=== PATIENT | male | born 1950 | race Caucasian/White ===

== ENCOUNTER 2016-05-15 11:09 | Observation (INO) | payer MEDICARE, OTHER ==
[~2016-05-15] VITALS: Ht 177.8 cm; Wt 100.1 kg
[2016-05-15] VITALS (8 sets, daily range): BP systolic 120–183; BP diastolic 60–91; PULSE 103–121; RESP 18–22; TEMP 89–98.1; O2SAT 93–97
[~2016-05-15 11:09] MED LIST: ALLO100T PO; ASPI81TA82 PO; CARV6.25 PO; CLOP75 PO; DIOV40TA PO; FURO1TAB93 PO; LEVA750T9 PO; LIPI10TA PO; PANT20 PO; POTA10IN2 PO; PRED10PA PO; Z.0.OXYGENDME NC
--- NOTE | 2016-05-15 11:29 | PD ---
HPI Chief Complaint: Chest Pain Time Seen by Provider: 11:24 Travel History International Travel<30 days: No Contact w/Intl Traveler<30days: No Traveled to known affect area: No History of Present Illness HPI 66-year-old male with PMH of lymphoma, gout, pulmonary fibrosis, HTN, GERD, CAD S/P stenting ~15 years ago ON PLAVIX presents to the ED for evaluation of 09/27, constant, centralized chest pain, radiating to the shoulders. Patient states this pain woke him from sleep this morning. He denies palpitations, diaphoresis , nausea or vomiting. Patient also complains of shortness of breath, no alleviating or exacerbating factors reported. States that he was feeling well last night. He denies recent history of headaches, dizziness, fevers, chills, chest pain, palpitations, abdominal pain, nausea, vomiting, dysuria, back pain. Patient states he was able to take his normal proximate tomorrow walk on the beach this morning. He states that he was feeling short of breath upon return, use rescue inhaler and his nighttime oxygen. He states that he uses 2 L of oxygen at night secondary to his pulmonary fibrosis. He endorses drinking "3 or 4 beers" daily. He is followed by Dr. Woodard, primary care, Dr. Jamie Bustillo, oncology, Dr. Nava, cardiology. PFS Past Medical History Arthritis: No Asthma: No Autoimmune Disease: No Heart Rhythm Problems: No Cancer: Yes (lymphoma) Cardiac Catheterization: Yes Cardiovascular Problems: Yes (cardiac stents) High Cholesterol: Yes Chemotherapy: No Chest Pain: No Congestive Heart Failure: No COPD: No Cerebrovascular Accident: No Coronary Artery Disease: Yes Diabetes: No Diminished Hearing: No Endocrine: No Gastrointestinal Disorders: Yes GERD: Yes Gout: Yes Genitourinary: No Headaches: No Hiatal Hernia: No Heparin Induced Thrombocytopen: No Hypertension: Yes Immune Disorder: No Implanted Vascular Access Dvce: No Kidney Stones: No Musculoskeletal: No Neurologic: No Psychiatric: No Reproductive: No Respiratory: Yes Migraines: No Radiation Therapy: No Renal Failure: No Seizures: No Sickle Cell Disease: No Sleep Apnea: No Thyroid Disease: No Ulcer: No Tetanus Vaccination: Unknown Influenza Vaccination: No Past Surgical History Abdominal Surgery: No AICD: No Arteriovenous Shunt: No Cardiac Surgery: Yes (stents) Ear Surgery: No Endocrine Surgery: No Eye Surgery: Yes (cataract) Genitourinary Surgery: No Gynecologic Surgery: No Insulin Pump: No Joint Replacement: No Neurologic Surgery: No Oral Surgery: No Pacemaker: No Thoracic Surgery: No Tonsillectomy: Yes Other Surgery: Yes (tonsillectomy, stent placement) Social History Alcohol Use: Yes (3-4 beers daily) Tobacco Use: No Substance Use: No Allergies-Medications (Allergen,Severity, Reaction): Coded Allergies: No Known Allergies (Unverified , 05/15/16) Reported Meds & Prescriptions Reported Meds & Active Scripts Active Reported Plavix (Clopidogrel Bisulfate) 75 Mg Tab 75 Mg PO DAILY Atorvastatin (Atorvastatin Calcium) 20 Mg Tab 20 Mg PO HS Aspirin 81 (Aspirin) 81 Mg Tabdr 81 Mg PO DAILY Allopurinol 300 Mg Tab 300 Mg PO DAILY Pantoprazole (Pantoprazole Sodium) 40 Mg Tab 40 Mg PO 2XWEEK Fish Oil 1200 mg ([place]-3 Fatty Acids) 1 Cap Cap 2,400 Mg PO DAILY Review of Systems Except as stated in HPI: all other systems reviewed are Neg Physical Exam Narrative GENERAL: Well-nourished, well-developed obese white male in no acute distress. SKIN: Warm and dry. HEAD: Normocephalic. EYES: No scleral icterus. No injection or drainage. NECK: Supple, trachea midline. No JVD or lymphadenopathy. CARDIOVASCULAR: Regular rate and rhythm without murmurs, gallops, or rubs. 2+ DP and radial pulses bilaterally. RESPIRATORY: Breath sounds clear and equal bilaterally. No accessory muscle use. GASTROINTESTINAL: Abdomen soft, nondistended, tender to palpation in the right upper quadrant and epigastric areas. Some voluntary guarding. No palpable masses. MUSCULOSKELETAL: No cyanosis, or edema. The patient is observed to walk with a normal gate. BACK: Nontender without obvious deformity. No CVA tenderness. Data Data Last Documented VS Vital Signs Date Time Temp Pulse Resp B/P Pulse Ox O2 Delivery O2 Flow Rate FiO2 05/15/16 16:09 109 20 142/72 95 Nasal Cannula 2 05/15/16 11:59 97.7 Orders Electrocardiogram (05/15/16 11:19) Ckmb (Isoenzyme) Profile (05/15/16 11:19) Complete Blood Count With Diff (05/15/16 11:19) Comprehensive Metabolic Panel (05/15/16 11:19) Magnesium (Mg) (05/15/16 11:19) Prothrombin Time / Inr (Pt) (05/15/16 11:19) Act Partial Throm Time (Ptt) (05/15/16 11:19) Troponin I (05/15/16 11:19) Lipase (05/15/16 11:19) Chest, Single Ap (05/15/16 11:19) Ecg Monitoring (05/15/16 11:19) Bilateral Bp Monitoring (05/15/16 11:19) Iv Access Insert/Monitor (05/15/16 11:19) Oximetry (05/15/16 11:19) Sodium Chloride 0.9% Flush (Ns Flush) (05/15/16 11:30) Urinalysis - C+S If Indicated (05/15/16 11:19) Morphine Inj (Morphine Inj) (05/15/16 11:30) Ondansetron Inj (Zofran Inj) (05/15/16 11:30) Oxygen Administration (05/15/16 11:19) Ct Pulmonary Angiogram (05/15/16 ) Iohexol 350 Inj (Omnipaque 350 Inj) (05/15/16 13:27) Alcohol Withdrawal Asmt-Ciwa Q4HX18 (05/15/16 15:36) Flumazenil Inj (Romazicon Inj) (05/15/16 15:45) Lorazepam (Ativan) (05/15/16 15:45) Lorazepam Inj (Ativan Inj) (05/15/16 15:45) Lorazepam (Ativan) (05/15/16 15:45) Lorazepam Inj (Ativan Inj) (05/15/16 15:45) Lorazepam Inj (Ativan Inj) (05/15/16 15:45) Lorazepam Inj (Ativan Inj) (05/15/16 15:45) Admit Order (Ed Use Only) (05/15/16 16:25) Labs Laboratory Tests Test 05/15/16 05/15/16 11:20 13:35 White Blood Count 13.7 TH/MM3 Red Blood Count 4.46 MIL/MM3 Hemoglobin 14.9 GM/DL Hematocrit 41.5 % Mean Corpuscular Volume 93.0 FL Mean Corpuscular Hemoglobin 33.4 PG Mean Corpuscular Hemoglobin 35.9 % Concent Red Cell Distribution Width 13.4 % Platelet Count 400 TH/MM3 Mean Platelet Volume 7.3 FL Neutrophils (%) (Auto) 78.9 % Lymphocytes (%) (Auto) 9.8 % Monocytes (%) (Auto) 9.7 % Eosinophils (%) (Auto) 0.9 % Basophils (%) (Auto) 0.7 % Neutrophils # (Auto) 10.8 TH/MM3 Lymphocytes # (Auto) 1.3 TH/MM3 Monocytes # (Auto) 1.3 TH/MM3 Eosinophils # (Auto) 0.1 TH/MM3 Basophils # (Auto) 0.1 TH/MM3 CBC Comment DIFF FINAL Differential Comment Prothrombin Time 12.3 SEC Prothromb Time International 1.1 RATIO Ratio Activated Partial 29.5 SEC Thromboplast Time Sodium Level 136 MEQ/L Potassium Level 3.6 MEQ/L Chloride Level 99 MEQ/L Carbon Dioxide Level 30.3 MEQ/L Anion Gap 7 MEQ/L Blood Urea Nitrogen 9 MG/DL Creatinine 0.96 MG/DL Estimat Glomerular Filtration 78 ML/MIN Rate Random Glucose 95 MG/DL Calcium Level 8.7 MG/DL Magnesium Level 1.5 MG/DL Total Bilirubin 1.4 MG/DL Aspartate Amino Transf 20 U/L (AST/SGOT) Alanine Aminotransferase 20 U/L (ALT/SGPT) Alkaline Phosphatase 105 U/L Total Creatine Kinase 40 U/L Troponin I LESS THAN 0.02 NG/ML Total Protein 9.3 GM/DL Albumin 3.2 GM/DL Lipase 103 U/L Urine Color YELLOW Urine Turbidity CLEAR Urine pH 6.5 Urine Specific [place] 1.040 Urine Protein TRACE mg/dL Urine Glucose (UA) NEG mg/dL Urine Ketones NEG mg/dL Urine Occult Blood NEG Urine Nitrite NEG Urine Bilirubin NEG Urine Urobilinogen 2.0 MG/DL Urine Leukocyte Esterase NEG Urine Mucus FEW /lpf Microscopic Urinalysis Comment CULT NOT INDICATED MDM Medical Decision Making Medical Screen Exam Complete: Yes Emergency Medical Condition: Yes Interpretation(s) EKG rate 121, sinus rhythm. ND interval 159, QRS 98, QTc 387. Normal axis. No ST changes. Reviewed by Dr. Manzanares. Differential Diagnosis Angina versus GERD versus cholecystitis versus pancreatitis versus PE versus pneumonia versus ACS versus electrolyte abnormality versus anemia versus other Narrative Course 66-year-old male with PMH of lymphoma, gout, pulmonary fibrosis, HTN, GERD, CAD S/P stenting ~15 years ago ON PLAVIX presents to the ED for evaluation of 09/27, constant, centralized chest pain, radiating to the shoulders. Onset around 7 AM , the patient's from sleep. Accompanied by shortness of breath. No alleviating or exacerbating factors reported. He denies palpitations, diaphoresis, nausea or vomiting. He denies recent history of headaches, dizziness, fevers, chills, chest pain, palpitations, abdominal pain, nausea, vomiting, dysuria, back pain. Patient states he was able to take his normal ~2 mile walk on the beach this morning. This exacerbated her shortness of breath so he uses rescue inhaler and O2. He states that he uses 2 L of oxygen at night secondary to his pulmonary fibrosis. He endorses drinking "3 or 4 beers" daily. He is followed by Dr. Woodard, primary care, Dr. Jamie Bustillo, oncology, Dr. Nava, cardiology. Vitals reviewed. Patient is tachycardic, hypertensive, respiratory rate 22, 93% O2 saturation on presentation. Physical exam reveals an obese white male in no acute distress. No appreciable M/R/GP. Clear, equal breath sounds in all lung armstrong. Abdomen tender in the epigastric and right upper quadrant areas. Active bowel sounds. Equal pulses in bilateral extremities. No lower extremity edema. IV was established. Patient was placed on continuous monitoring and administered 2 L oxygen via nasal cannula. He was administered 4 mg morphine. EKG: As above. CBC: WBC 13.7, 78.9% neutrophils. Chem 14.9. INR 1.1. CMP: Bilirubin 1.4. Lipase 103. Cardiac enzymes negative. Chest x-ray: No acute cardiopulmonary disease per radiology read. CTA of the chest: 1. No evidence of pulmonary loss. 2. Moderate severity bilateral interstitial opacities, unchanged. 3. 1 cm right lung nodule, unchanged. 4. Mildly enlarged hilar and mediastinal lymph nodes, unchanged. Recheck of the patient reveals improvement of his pain symptoms. Tachycardia, rate 110 and 120 persists. Patient was removed from oxygen and O2 sats were noted to dip into the low 90s at rest. Dr. Manzanares and I discussed the results of the workup with the patient. We recommended the patient be admitted for 23 hour observation, serial cardiac enzymes and EKGs. The patient is agreeable with this plan. Patient was placed on [facility] protocol. Call placed to the patient's PCP, Dr. Woodard. Spoke with Dr. Woodard who states that [facility] is admitting his patients today. Took with Dr. Lio Pastrana. He agrees to accept the patient for 23 hour observation. Please see medicine notes for disposition. Diagnosis Primary Impression: Chest pain Qualified Code: R07.9 - Chest pain, unspecified type Additional Impressions: Tachycardia Hypoxia Briseyda Orr May 15, 2016 11:29
[2016-05-15] MEDS ORDERED: ONDANSETRON HCL 4 MG/2 ML VIAL IVP ONE (11:30)
[2016-05-15] MEDS ORDERED: MORPHINE SULFATE 4 MG/ML INJ IV PUSH ONE (11:30)
[2016-05-15] MEDS ORDERED: SODIUM CHLORIDE 0.9% FLUSH 5 ML FLUSH IVF PRN (11:30)
[2016-05-15 11:42] LABS: AUTOMATED NEUTROPHIL # 10.8 TH/MM3 (1.8-7.7); BASOPHIL # 0.1 TH/MM3 (0-0.2); BASOPHIL % 0.7 % (0.0-2.0); EOSINOPHIL # 0.1 TH/MM3 (0-0.4); EOSINOPHIL % 0.9 % (0.0-4.0); HEMATOCRIT 41.5 % (39.0-51.0); HEMO FLAGS DIFF FINAL; LYMPH % 9.8 % (9.0-44.0); LYMPHOCYTE # 1.3 TH/MM3 (1.0-4.8); MEAN CORPUSCULAR HEMOGLOBIN 33.4 PG (27.0-34.0); MEAN CORPUSCULAR HGB CONC 35.9 % (32.0-36.0); MONO % 9.7 % (0.0-8.0); NEUT % 78.9 % (16.0-70.0); PLATELET COUNT 400 TH/MM3 (150-450); RED BLOOD COUNT 4.46 MIL/MM3 (4.50-5.90); RED CELL DISTRIBUTION WIDTH 13.4 % (11.6-17.2); WHITE BLOOD COUNT 13.7 TH/MM3 (4.0-11.0)
[2016-05-15] MEDS ORDERED: FISH1200 PO (11:51)
[2016-05-15] MEDS ORDERED: PANT40TA3 PO (11:51)
[2016-05-15 11:52] LABS: APTT (PATIENT) 29.5 SEC (24.3-30.1); INTERNATIONAL NORMALIZED RATIO 1.1 RATIO; PROTHROMBIN TIME - PATIENT 12.3 SEC (9.8-11.6)
[2016-05-15] MEDS ORDERED: ALLO300T2 PO (11:52)
[2016-05-15] MEDS ORDERED: ATOR20TA15 PO (11:52)
[2016-05-15] MEDS ORDERED: ASPI-110 PO (11:52)
[2016-05-15] MEDS ORDERED: PLAV75TA29 PO (11:52)
[2016-05-15 11:58] LABS: ANION GAP 7 MEQ/L (5-15); AST (GOT) 20 U/L (15-37); BICARBONATE 30.3 MEQ/L (21.0-32.0); BLOOD UREA NITROGEN 9 MG/DL (7-18); CHLORIDE 99 MEQ/L (98-107); GLOMERULAR FILTRATION RATE 78 ML/MIN (>89); MAGNESIUM 1.5 MG/DL (1.5-2.5); POTASSIUM 3.6 MEQ/L (3.5-5.1); SODIUM (NA) 136 MEQ/L (136-145)
[2016-05-15 12:03] LABS: ALKALINE PHOSPHATASE 105 U/L (45-117); ALT (GPT) 20 U/L (12-78); TOTAL BILIRUBIN ADULT 1.4 MG/DL (0.2-1.0)
--- NOTE | 2016-05-15 12:50 | RADRPT ---
EXAM DATE/TIME: 05/15/2016 11:26 [facility] COMPARISON: CHEST SINGLE AP, August 02, 2015, 11:49. INDICATIONS : Pain and shortness of breath. MEDICAL HISTORY : Pneumonia/sepsis in November. SURGICAL HISTORY : Stent placement. ENCOUNTER: Initial ACUITY: 1 day PAIN SCORE: 5/10 LOCATION: Bilateral chest FINDINGS: Single AP view of the chest. The lungs are clear. Cardiomediastinal silhouette within normal limits. No evidence of pleural effusion or pneumothorax. CONCLUSION: No acute cardiopulmonary disease identified. Kang Cox MD on May 15, 2016 at 12:48 Board Certified Radiologist. This report was verified electronically.
[2016-05-15 12:56] LABS: CREATINE KINASE 40 U/L (39-308)
[2016-05-15] MEDS ORDERED: IOHEXOL 350 MG/ML 10 ML VIAL (for RAD DIAG) IV ONE (13:27)
[2016-05-15 14:00] LABS: BLOOD, URINE NEG (NEG); COMMENT (UR) CULT NOT INDICATED; CULTURE IF INDICATED CULT NOT INDICATED; GLUCOSE,URINE NEG (NEG); KETONE, URINE NEG (NEG); MUCUS URINE FEW /lpf (OCC); NITRITE,URINE NEG (NEG); PH, URINE 6.5 (5.0-8.5); URINE COLOR YELLOW (YELLW/STRAW)
--- NOTE | 2016-05-15 14:42 | RADRPT ---
EXAM DATE/TIME: 05/15/2016 13:23 [facility] COMPARISON: CT THORAX W/O CONTRAST, July 30, 2015, 13:51. CHEST SINGLE AP, May 15, 2016, 11:26. INDICATIONS : Short of breath. IV CONTRAST: 60 cc Omnipaque 350 (iohexol) IV RADIATION DOSE: 23.15 CTDIvol (mGy) MEDICAL HISTORY : Cardiovascular disease. Gastroesophageal reflux disease. Lymphoma. SURGICAL HISTORY : None. ENCOUNTER: Initial ACUITY: 1 day PAIN SCALE: 3/10 LOCATION: chest TECHNIQUE: Volumetric scanning of the chest was performed using a pulmonary embolism protocol MIP images were re constructed. Using automated exposure control and adjustment of the mA and/or kV according to patien t size, radiation dose was kept as low as reasonably achievable to obtain optimal diagnostic quality images. FINDINGS: PULMONARY ARTERIES: No filling defects are seen in the pulmonary arteries through the segmental level. LUNGS: Moderate severity bilateral reticular, predominantly peripheral opacity is again seen in the lungs. T hese findings are very similar to the prior CT chest of 07/30/2015. Right midlung nodule on image #59 measures 1.1 x 0.8 cm, unchanged from prior study PLEURAE: There is no pleural thickening or pleural effusion. MEDIASTINUM: Small prominent hilar lymph nodes bilaterally with the largest seen on the right measuring 2.4 x 1.7 cm, grossly unchanged from prior CT. Multiple mildly prominent mediastinal lymph nodes also unchanged . Coronary artery calcifications. Small pericardial effusion. Thoracic aorta is normal diameter. MUSCULOSKELETAL: Within normal limits for patient age. MISCELLANEOUS: The visualized upper abdominal organs demonstrate no acute abnormality. CONCLUSION: 1. No evidence of pulmonary loss. 2. Moderate severity bilateral interstitial opacity unchanged indicating chronic lung disease. 3. 1 cm right lung nodule unchanged. 4. Mildly enlarged hilar lymph nodes and mediastinal lymph nodes unchanged. Kang Cox MD on May 15, 2016 at 14:33 Board Certified Radiologist. This report was verified electronically.
--- NOTE | 2016-05-15 15:34 | PD ---
Data Data Last Documented VS Vital Signs Date Time Temp Pulse Resp B/P Pulse Ox O2 Delivery O2 Flow Rate FiO2 05/15/16 14:36 112 22 158/74 96 2 05/15/16 13:09 Nasal Cannula 05/15/16 11:59 97.7 Orders Electrocardiogram (05/15/16 11:19) Ckmb (Isoenzyme) Profile (05/15/16 11:19) Complete Blood Count With Diff (05/15/16 11:19) Comprehensive Metabolic Panel (05/15/16 11:19) Magnesium (Mg) (05/15/16 11:19) Prothrombin Time / Inr (Pt) (05/15/16 11:19) Act Partial Throm Time (Ptt) (05/15/16 11:19) Troponin I (05/15/16 11:19) Lipase (05/15/16 11:19) Chest, Single Ap (05/15/16 11:19) Ecg Monitoring (05/15/16 11:19) Bilateral Bp Monitoring (05/15/16 11:19) Iv Access Insert/Monitor (05/15/16 11:19) Oximetry (05/15/16 11:19) Sodium Chloride 0.9% Flush (Ns Flush) (05/15/16 11:30) Urinalysis - C+S If Indicated (05/15/16 11:19) Morphine Inj (Morphine Inj) (05/15/16 11:30) Ondansetron Inj (Zofran Inj) (05/15/16 11:30) Oxygen Administration (05/15/16 11:19) Ct Pulmonary Angiogram (05/15/16 ) Iohexol 350 Inj (Omnipaque 350 Inj) (05/15/16 13:27) Labs Laboratory Tests Test 05/15/16 05/15/16 11:20 13:35 White Blood Count 13.7 TH/MM3 Red Blood Count 4.46 MIL/MM3 Hemoglobin 14.9 GM/DL Hematocrit 41.5 % Mean Corpuscular Volume 93.0 FL Mean Corpuscular Hemoglobin 33.4 PG Mean Corpuscular Hemoglobin 35.9 % Concent Red Cell Distribution Width 13.4 % Platelet Count 400 TH/MM3 Mean Platelet Volume 7.3 FL Neutrophils (%) (Auto) 78.9 % Lymphocytes (%) (Auto) 9.8 % Monocytes (%) (Auto) 9.7 % Eosinophils (%) (Auto) 0.9 % Basophils (%) (Auto) 0.7 % Neutrophils # (Auto) 10.8 TH/MM3 Lymphocytes # (Auto) 1.3 TH/MM3 Monocytes # (Auto) 1.3 TH/MM3 Eosinophils # (Auto) 0.1 TH/MM3 Basophils # (Auto) 0.1 TH/MM3 CBC Comment DIFF FINAL Differential Comment Prothrombin Time 12.3 SEC Prothromb Time International 1.1 RATIO Ratio Activated Partial 29.5 SEC Thromboplast Time Sodium Level 136 MEQ/L Potassium Level 3.6 MEQ/L Chloride Level 99 MEQ/L Carbon Dioxide Level 30.3 MEQ/L Anion Gap 7 MEQ/L Blood Urea Nitrogen 9 MG/DL Creatinine 0.96 MG/DL Estimat Glomerular Filtration 78 ML/MIN Rate Random Glucose 95 MG/DL Calcium Level 8.7 MG/DL Magnesium Level 1.5 MG/DL Total Bilirubin 1.4 MG/DL Aspartate Amino Transf 20 U/L (AST/SGOT) Alanine Aminotransferase 20 U/L (ALT/SGPT) Alkaline Phosphatase 105 U/L Total Creatine Kinase 40 U/L Troponin I LESS THAN 0.02 NG/ML Total Protein 9.3 GM/DL Albumin 3.2 GM/DL Lipase 103 U/L Urine Color YELLOW Urine Turbidity CLEAR Urine pH 6.5 Urine Specific [place] 1.040 Urine Protein TRACE mg/dL Urine Glucose (UA) NEG mg/dL Urine Ketones NEG mg/dL Urine Occult Blood NEG Urine Nitrite NEG Urine Bilirubin NEG Urine Urobilinogen 2.0 MG/DL Urine Leukocyte Esterase NEG Urine Mucus FEW /lpf Microscopic Urinalysis Comment CULT NOT INDICATED MDM Supervised Visit with JEFF: Yes Narrative Course The history, exam, and medical decision-making in the associated midlevel provider note were completed with my assistance. I reviewed and agree with the findings presented. I attest that I had a [id number] encounter with the patient on the same day, and personally performed and documented my assessment and findings in the medical record. *My assessment and Findings: This is a 66-year-old male who has a history of pulmonary fibrosis and lymphoma who presents to the emergency department with an episode of chest discomfort that started this morning in the center of his chest radiating to the back, associated with some shortness of breath. The pain was pleuritic in nature. Patient is followed by Abraham Nava and hasn't had a stress test in 3 years. He did have a long illness with pneumonia earlier this year. He wears oxygen at home in the evenings but not during the day. Here in the emergency department he was persistently tachycardic. He had a mild leukocytosis. I obtained a CT pulmonary angiogram to evaluate for possible pulmonary embolism, lymphoma or occult pneumonia which was reassuring. I think the patient should be observed for serial cardiac enzymes. Given his tachycardia and history of pulmonary fibrosis he may be better served on the medicine service. His tachycardia may be due to chronic hypoxia from pulmonary fibrosis or may be secondary to acute alcohol withdrawal. He'll be placed on the [facility] protocol Diagnosis Primary Impression: Chest pain Qualified Code: R07.9 - Chest pain, unspecified type Admitting Information Admitting Physician Requests: Carmen Mccollum MD May 15, 2016 15:33
[2016-05-15] MEDS ORDERED: LORazepam 2 MG TAB PO PRN (15:45)
[2016-05-15] MEDS ORDERED: LORazepam 2 MG/ML VIAL IV PUSH PRN ×4 (15:45)
[2016-05-15] MEDS ORDERED: FLUMAZENIL 0.5 MG/5 ML VIAL IV PUSH PRN (15:45)
[2016-05-15] MEDS ORDERED: LORazepam 1 MG TAB PO PRN (15:45)
[2016-05-15] MEDS ORDERED: SODIUM CHLORIDE 0.9% FLUSH 5 ML FLUSH FLUSH PRN (16:30)
[2016-05-15] MEDS ORDERED: BISACODYL 10 MG SUPP PR PRN (16:30)
[2016-05-15] MEDS ORDERED: ONDANSETRON HCL 4 MG/2 ML VIAL IVP PRN (16:30)
[2016-05-15] MEDS ORDERED: ACETAMINOPHEN 325 MG TAB PO PRN (16:30)
[2016-05-15] MEDS ORDERED: NALOXONE HCL 0.4 MG/ML AMP IV PRN (16:30)
[2016-05-15] MEDS ORDERED: MAGNESIUM HYDROXIDE SUSP 30 ML CUP PO PRN (16:30)
--- NOTE | 2016-05-15 16:34 | EKG ---
Date Performed: 05/15/2016 Time Performed: 11:12:15 PTAGE: 66 years EKG: SINUS TACHYCARDIA ABNORMAL RHYTHM ECG NO PREVIOUS TRACING DOCTOR: Edin Reece Interpretating Date/Time 05/25/2016 07:37:07
[2016-05-15] MEDS ORDERED: ENOXAPARIN SODIUM 40 MG/0.4 ML SYRINGE SQ SCH (17:00)
--- NOTE | 2016-05-15 17:18 | HHI.HP ---
[facility] Service [facility] Physician Michele Woodard MD Admission Diagnosis chest pain, tachycardia, hypoxia Diagnoses: Chief Complaint: Chest pain. Travel History International Travel<30 Days: No Contact w/Intl Traveler <30 Da: No Traveled to Known Affected Are: No History of Present Illness Mr. Lagos is a pleasant 66 year old male with a history of pulmonary fibrosis , CAD s/p stent 15 years ago, currently on Plavix who presents to the ED on 05/15 due to constant, central chest pain with radiation to the shoulders. Patient woke up with chest pain this morning. He did not have any nausea, vomiting or diaphoresis but had some shortness of breath. He was able to do his normal daily walk this morning but when he returned he experienced more than usual shortness of breath. He used inhaler and O2 which he normally uses at night. He is followed by Dr. Woodard, primary care, Dr. Jamie Bustillo, oncology, Dr. Nava, cardiology. 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 Review of Systems ROS Limitations: Other (Negative except as noted in the HPI. ) Past Family Social History Past Medical History Lymphoma, coronary artery disease, pulmonary fibrosis, GERD, gout, hyperlipidemia Past Surgical History Cataract surgery, tonsillectomy, cardiac stent placement. Reported Medications Plavix (Clopidogrel Bisulfate) 75 Mg Tab 75 Mg PO DAILY Atorvastatin (Atorvastatin Calcium) 20 Mg Tab 20 Mg PO HS Aspirin 81 (Aspirin) 81 Mg Tabdr 81 Mg PO DAILY Allopurinol 300 Mg Tab 300 Mg PO DAILY Pantoprazole (Pantoprazole Sodium) 40 Mg Tab 40 Mg PO 2XWEEK Fish Oil 1200 mg ([place]-3 Fatty Acids) 1 Cap Cap 2,400 Mg PO DAILY Allergies: Coded Allergies: No Known Allergies (Unverified , 05/15/16) Family History Parents had dementia. Social History Patient does not use tobacco or illicit drugs. He drinks 3-4 beers a day. 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 Physical Exam Vital Signs Vital Signs Date Time Temp Pulse Resp B/P Pulse Ox O2 Delivery O2 Flow Rate FiO2 05/15/16 16:09 109 20 142/72 95 Nasal Cannula 2 05/15/16 14:36 112 22 158/74 96 2 05/15/16 13:09 112 20 122/64 95 Nasal Cannula 2 05/15/16 12:08 Automatic Cuff 05/15/16 11:59 97.7 119 20 135/80 97 Nasal Cannula 2 132/73 05/15/16 11:27 96 Nasal Cannula 2 05/15/16 11:27 96 Nasal Cannula 2 05/15/16 11:15 120 22 95 Nasal Cannula 2 05/15/16 11:11 98.0 121 22 183/91 93 Physical Exam GENERAL: This is a well-nourished, well-developed patient, in no apparent distress. SKIN: No rashes, ecchymoses or lesions. Warm and dry. HEAD: Atraumatic. Normocephalic. No temporal or scalp tenderness. EYES: Pupils equal round and reactive. No injection or drainage. ENT: Nose without bleeding, purulent drainage or septal hematoma. Airway patent. NECK: Trachea midline. No lymphadenopathy. Supple, nontender, no meningeal signs. CARDIOVASCULAR: Regular rate and rhythm without murmurs, gallops, or rubs. No JVD. RESPIRATORY: Moderate air entry, bibasilar Velcro like crackles. GASTROINTESTINAL: Abdomen soft, non-tender, nondistended. No guarding. MUSCULOSKELETAL: Extremities without clubbing, cyanosis, or edema. NEUROLOGICAL: Awake and alert. Cranial nerves II through XII intact. No focal neurological deficits. Normal speech. Laboratory Laboratory Tests Test 05/15/16 05/15/16 11:20 13:35 White Blood Count 13.7 Red Blood Count 4.46 Hemoglobin 14.9 Hematocrit 41.5 Mean Corpuscular Volume 93.0 Mean Corpuscular Hemoglobin 33.4 Mean Corpuscular Hemoglobin 35.9 Concent Red Cell Distribution Width 13.4 Platelet Count 400 Mean Platelet Volume 7.3 Neutrophils (%) (Auto) 78.9 Lymphocytes (%) (Auto) 9.8 Monocytes (%) (Auto) 9.7 Eosinophils (%) (Auto) 0.9 Basophils (%) (Auto) 0.7 Neutrophils # (Auto) 10.8 Lymphocytes # (Auto) 1.3 Monocytes # (Auto) 1.3 Eosinophils # (Auto) 0.1 Basophils # (Auto) 0.1 CBC Comment DIFF FINAL Differential Comment Prothrombin Time 12.3 Prothromb Time International 1.1 Ratio Activated Partial 29.5 Thromboplast Time Sodium Level 136 Potassium Level 3.6 Chloride Level 99 Carbon Dioxide Level 30.3 Anion Gap 7 Blood Urea Nitrogen 9 Creatinine 0.96 Estimat Glomerular Filtration 78 Rate Random Glucose 95 Calcium Level 8.7 Magnesium Level 1.5 Total Bilirubin 1.4 Aspartate Amino Transf 20 (AST/SGOT) Alanine Aminotransferase 20 (ALT/SGPT) Alkaline Phosphatase 105 Total Creatine Kinase 40 Troponin I LESS THAN 0.02 Total Protein 9.3 Albumin 3.2 Lipase 103 Urine Color YELLOW Urine Turbidity CLEAR Urine pH 6.5 Urine Specific [place] 1.040 Urine Protein TRACE Urine Glucose (UA) NEG Urine Ketones NEG Urine Occult Blood NEG Urine Nitrite NEG Urine Bilirubin NEG Urine Urobilinogen 2.0 Urine Leukocyte Esterase NEG Urine Mucus FEW Microscopic Urinalysis Comment CULT NOT INDICATED Result Diagram: 05/15/16 1120 05/15/16 1120 Imaging Last Impressions Chest X-Ray 05/15/16 1119 Signed Impressions: Service Date/Time: Sunday, May 15, 2016 11:26 - CONCLUSION: No acute cardiopulmonary disease identified. Kang Cox MD CT Angiography 05/15/16 0000 Signed Impressions: Service Date/Time: Sunday, May 15, 2016 13:23 - CONCLUSION: 1. No evidence of pulmonary loss. 2. Moderate severity bilateral interstitial opacity unchanged indicating chronic lung disease. 3. 1 cm right lung nodule unchanged. 4. Mildly enlarged hilar lymph nodes and mediastinal lymph nodes unchanged. Kang Cox MD Assessment and Plan Problem List: (1) Chest pain ICD Code: R07.9 Status: Acute (2) Pulmonary fibrosis ICD Code: J84.10 Status: Acute (3) HLD (hyperlipidemia) ICD Code: E78.5 Status: Acute Assessment and Plan Mr. Lagos is a pleasant 66 year old male with a history of pulmonary fibrosis and CAD s/p stents 13-15 years ago who presents to the ED with central chest pain with radiation to his shoulder, shortness of breath. - Chest pain - mostly atypical features. - Will rule out ACS with 3 sets of troponins. EKG reviewed by me - no evidence of acute ischemic changes. - Continue Aspirin, Plavix, statin. - Pulmonary fibrosis - Patient follows up with Dr. D'schaefer (Pulmonary) - Continue supplemental O2 as needed, Continue DuoNeb. - Hyperlipidemia - continue statin. - Alcohol abuse - Continue CIWA protocol. Full code. Lovenox. If clinically improved, we will likely discharge patient home tomorrow. He already has oxygen at home. He can follow up with Pulmonary in the next 1-2 weeks. Problem Qualifiers (1) Chest pain: Qualified Code: R07.9 - Chest pain, unspecified type Iggy Pastrana DO May 15, 2016 17:18
--- NOTE | 2016-05-15 20:37 | EKG ---
Date Performed: 05/15/2016 Time Performed: 16:52:28 PTAGE: 66 years EKG: SINUS TACHYCARDIA ABNORMAL RHYTHM ECG PREVIOUS TRACING : 05/15/2016 11.12 No significant change from previous tracing noted. DOCTOR: Edin Reece Interpretating Date/Time 05/15/2016 20:36:44
[2016-05-15] MEDS: SODIUM CHLORIDE 0.9% FLUSH 5 ML FLUSH FLUSH SCH (22:22)
[2016-05-15] MEDS ORDERED: RESP: ALBUTEROL 2.5 MG/IPRATROPIUM 0.5 MG NEB (PRN) NEB (22:45)
--- NOTE | 2016-05-15 23:16 | EKG ---
Date Performed: 05/15/2016 Time Performed: 22:05:23 PTAGE: 66 years EKG: Sinus rhythm NORMAL ECG PREVIOUS TRACING : 05/15/2016 16.52 DOCTOR: Edin Reece Interpretating Date/Time 05/15/2016 23:16:02
[2016-05-16] VITALS: BP 129/66; PULSE 95; RESP 18; TEMP 98.3; O2SAT 94
[2016-05-16 04:00] VITALS: BP 116/64; PULSE 84; RESP 18; TEMP 97.9; O2SAT 91
[2016-05-16 08:00] VITALS: BP_SYST 124; BP_SYST 128; BP_DIAS 68; BP_DIAS 72; PULSE 89; PULSE 92; RESP 16; TEMP 97.5; TEMP 97.6; O2SAT 94; O2SAT 95
[2016-05-16 08:13] VITALS: PULSE 92
[2016-05-16] MEDS: SODIUM CHLORIDE 0.9% FLUSH 5 ML FLUSH FLUSH SCH (08:32)
[2016-05-16] MEDS ORDERED: CLOPIDOGREL 75 MG TAB PO SCH (09:00)
[2016-05-16] MEDS ORDERED: ASPIRIN EC 81 MG TABEC PO SCH (09:00)
[2016-05-16] MEDS ORDERED: ALLOPURINOL 300 MG TAB PO SCH (09:00)
[2016-05-16 09:06] LABS: AUTOMATED NEUTROPHIL # 7.6 TH/MM3 (1.8-7.7); BASOPHIL # 0.1 TH/MM3 (0-0.2); BASOPHIL % 0.7 % (0.0-2.0); EOSINOPHIL # 0.1 TH/MM3 (0-0.4); EOSINOPHIL % 1.3 % (0.0-4.0); HEMATOCRIT 38.2 % (39.0-51.0); LYMPH % 15.2 % (9.0-44.0); LYMPHOCYTE # 1.6 TH/MM3 (1.0-4.8); MEAN CELL VOLUME 93.3 FL (80.0-100.0); MEAN CORPUSCULAR HEMOGLOBIN 33.6 PG (27.0-34.0); MONO % 9.7 % (0.0-8.0); NEUT % 73.1 % (16.0-70.0); PLATELET COUNT 322 TH/MM3 (150-450); RED BLOOD COUNT 4.09 MIL/MM3 (4.50-5.90); RED CELL DISTRIBUTION WIDTH 13.3 % (11.6-17.2); WHITE BLOOD COUNT 10.4 TH/MM3 (4.0-11.0)
[2016-05-16 09:08] LABS: HEMO FLAGS AUTO DIFF
[2016-05-16 09:29] LABS: BICARBONATE 30.7 MEQ/L (21.0-32.0); POTASSIUM 3.5 MEQ/L (3.5-5.1)
[2016-05-16 10:36] VITALS: O2SAT 95
[2016-05-16 10:37] LABS: SCAN/DIFF AUTO DIFF CONFIRMED
[2016-05-16 12:00] VITALS: BP 118/62; PULSE 75; RESP 24; TEMP 97.9; O2SAT 100
--- NOTE | 2016-05-16 13:49 | HHI.DCPOC ---
Discharge Care Plan Diagnosis: (1) Atypical chest pain (2) Chronic lung disease (3) Lung nodule Goals to Promote Your Health * To prevent worsening of your condition and complications * To maintain your health at the optimal level Directions to Meet Your Goals Take your medications as prescribed Follow your dietary instruction Follow activity as directed Keep your appointments as scheduled Take your immunizations and boosters as scheduled If your symptoms worsen call your PCP, if no PCP go to Urgent Care Center or Emergency Room Smoking is Dangerous to Your Health. Avoid second hand smoke Call the 24-hour hour crisis hotline for domestic abuse at Shavonne Tong MD May 16, 2016 13:48
--- NOTE | 2016-05-16 13:49 | HHI.DS ---
Discharge Summary Admission Date May 15, 2016 at 16:27 Discharge Date: May 16, 2016 Admitting Diagnosis chest pain, tachycardia, hypoxia (1) Atypical chest pain ICD Code: R07.89 Diagnosis: Principal (2) Pulmonary fibrosis ICD Code: J84.10 Diagnosis: Secondary (3) HLD (hyperlipidemia) ICD Code: E78.5 Diagnosis: Secondary (4) Chronic lung disease ICD Code: J98.4 Diagnosis: Secondary (5) Lung nodule ICD Code: R91.1 Diagnosis: Secondary Procedures none Brief History - From Admission Mr. Lagos is a pleasant 66 year old male with a history of pulmonary fibrosis , CAD s/p stent 15 years ago, currently on Plavix who presents to the ED on 05/15 due to constant, central chest pain with radiation to the shoulders. Patient woke up with chest pain this morning. He did not have any nausea, vomiting or diaphoresis but had some shortness of breath. He was able to do his normal daily walk this morning but when he returned he experienced more than usual shortness of breath. He used inhaler and O2 which he normally uses at night. He is followed by Dr. Woodard, primary care, Dr. Jamie Bustillo, oncology, Dr. Nava, cardiology. 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 CBC/BMP: 05/16/16 0841 05/16/16 0841 Significant Findings Laboratory Tests Test 05/15/16 05/15/16 05/15/16 05/15/16 11:20 13:35 16:55 23:54 White Blood Count 13.7 TH/MM3 (4.0-11.0) Red Blood Count 4.46 MIL/MM3 (4.50-5.90) Neutrophils (%) (Auto) 78.9 % (16.0-70.0) Monocytes (%) (Auto) 9.7 % (0.0-8.0) Neutrophils # (Auto) 10.8 TH/MM3 (1.8-7.7) Monocytes # (Auto) 1.3 TH/MM3 (0-0.9) Prothrombin Time 12.3 SEC (9.8-11.6) Estimat Glomerular Filtration 78 ML/MIN (>89) Rate Total Bilirubin 1.4 MG/DL (0.2-1.0) Troponin I LESS THAN 0.02 LESS THAN 0.02 LESS THAN 0.02 NG/ML NG/ML NG/ML (0.02-0.05) (0.02-0.05) (0.02-0.05) Total Protein 9.3 GM/DL (6.4-8.2) Albumin 3.2 GM/DL (3.4-5.0) Urine Specific [place] 1.040 (1.002-1.035) Urine Mucus FEW /lpf (OCC) Test 05/16/16 08:41 Red Blood Count 4.09 MIL/MM3 (4.50-5.90) Hematocrit 38.2 % (39.0-51.0) Mean Platelet Volume 6.8 FL (7.0-11.0) Neutrophils (%) (Auto) 73.1 % (16.0-70.0) Monocytes (%) (Auto) 9.7 % (0.0-8.0) Monocytes # (Auto) 1.0 TH/MM3 (0-0.9) Sodium Level 135 MEQ/L (136-145) Chloride Level 97 MEQ/L (98-107) Estimat Glomerular Filtration 87 ML/MIN (>89) Rate Random Glucose 141 MG/DL (74-106) Imaging Last Impressions Chest X-Ray 05/15/16 1119 Signed Impressions: Service Date/Time: Sunday, May 15, 2016 11:26 - CONCLUSION: No acute cardiopulmonary disease identified. Kang Cox MD CT Angiography 05/15/16 0000 Signed Impressions: Service Date/Time: Sunday, May 15, 2016 13:23 - CONCLUSION: 1. No evidence of pulmonary loss. 2. Moderate severity bilateral interstitial opacity unchanged indicating chronic lung disease. 3. 1 cm right lung nodule unchanged. 4. Mildly enlarged hilar lymph nodes and mediastinal lymph nodes unchanged. Kang Cox MD PE at Discharge Gen NAD CV RRR. no r/m/g Resp CTA B/L Abd soft NDNT Neuro AAO X 3. no r/m/g Hospital Course patient had a relatively short hospital course. He presented with atypical chest pain that was associated with food. He admits to decreasing PPI recently and thinks it might be attributed to that. Patient was asymptomatically throughout the hospital course. No events on monitor. Labs/troponin were negative. he was back to his baseline with no issues. Patient asked to go after labs were negative and did not want any further testing. Pt Condition on Discharge: Good Discharge Disposition: Discharge Home Discharge Time: <= 30 minutes Discharge Instructions DIET: Follow Instructions for: Heart Healthy Diet Activities you can perform: Regular-No Restrictions Follow up Referrals: PCP Follow-up - 1 Week Pulmonology - 2 Weeks Continued Medications: Allopurinol (Allopurinol) 300 Mg Tab 300 MG PO DAILY Gout #[address] Ref [address] (Aspirin 81) 81 Mg Tabdr 81 MG PO DAILY Ref 0 TAB Atorvastatin (Atorvastatin) 20 Mg Tab 20 MG PO HS Cholesterol Management #30 Ref 0 TAB Clopidogrel (Plavix) 75 Mg Tab 75 MG PO DAILY Blood Clot Prevention #30 Ref 0 TAB [place]-3 Fatty Acids (Fish Oil 1200 mg) 1 Cap Cap 2400 MG PO DAILY Pantoprazole (Pantoprazole) 40 Mg Tab 40 MG PO 2XWEEK Reflux #30 Ref 0 TAB Additional Information if chest pain reoccurs go to ED or call 911. patient told to return to his prior dose of PPI and see his PCP. Shavonne Tong MD May 16, 2016 13:49
[2016-05-16] MEDS ORDERED: ATORVASTATIN 20 MG TAB PO SCH (21:00)
== END 2016-05-16 14:25 | disposition home or self-care (01) ==
LOC: NEPC 11:09 → NEDA 16:27 → N04B 17:50
PROVIDERS: ADMIT Family Medicine; ATTEND Family Medicine
DX: R07.89 Other chest pain (principal); J84.10 Pulmonary fibrosis, unspecified; I10 Essential (primary) hypertension; I25.10 Atherosclerotic heart disease of native coronary artery without angina pectoris; E78.5 Hyperlipidemia, unspecified; R91.1 Solitary pulmonary nodule; D72.829 Elevated white blood cell count, unspecified; K21.9 Gastro-esophageal reflux disease without esophagitis; M10.9 Gout, unspecified; E78.00 Pure hypercholesterolemia, unspecified; Z95.5 Presence of coronary angioplasty implant and graft; Z77.090 Contact with and (suspected) exposure to asbestos; Z85.72 Personal history of non-Hodgkin lymphomas; Z99.81 Dependence on supplemental oxygen
CPT/HCPCS: 71010; 71275; 80048; 80053; 81001; 82550; 83690; 83735; 84484; 85025; 85610; 85730; 93005; 99285; G0378; J1650; Q9967

== ENCOUNTER 2016-06-04 10:22 | Emergency (ER) | payer MEDICARE, OTHER ==
[~2016-06-04] VITALS: Ht 177.8 cm; Wt 95.0 kg
[~2016-06-04 10:22] MED LIST changes: -ALLO100T PO; +ALLO300T2 PO; +ASPI-110 PO; -ASPI81TA82 PO; +ATOR20TA15 PO; -CARV6.25 PO; -CLOP75 PO; -DIOV40TA PO; +FISH1200 PO; -FURO1TAB93 PO; -LEVA750T9 PO; -LIPI10TA PO; -PANT20 PO; +PANT40TA3 PO; +PLAV75TA29 PO; -POTA10IN2 PO; -PRED10PA PO; -Z.0.OXYGENDME NC
[2016-06-04 10:28] VITALS: BP 174/88; PULSE 95; RESP 24; TEMP 97.7; O2SAT 91
[2016-06-04] MEDS ORDERED: LEVA500T PO (11:02)
--- NOTE | 2016-06-04 11:02 | PD ---
HPI Chief Complaint: Cardiac Complaint Time Seen by Provider: 10:32 Travel History International Travel<30 days: No Contact w/Intl Traveler<30days: No Traveled to known affect area: No History of Present Illness HPI This is a 66-year-old male who has a history of pulmonary fibrosis who presents to the emergency department with shortness of breath it's been present for about a week. He said he checked his oxygen saturation earlier this week and it was in the 70s. He put himself on his home oxygen and went to see Dr. Hills his central supply nurse. There he had chest x-ray, EKG and was evaluated and was started on prednisone and clarithromycin. Since then he feels like his heart has been racing and is been having some palpitations. He is concerned about the side effects of the clarithromycin and wants his antibiotic changed. Otherwise he denies any fevers or chills. He has had some productive cough with yellow sputum. He just was admitted several weeks ago in the setting of shortness of breath and some chest pain. He had serial cardiac enzymes which were negative. He declined a stress test at that time. PFSH Past Medical History Hx Anticoagulant Therapy: Yes Arthritis: No Asthma: No Autoimmune Disease: No Heart Rhythm Problems: No Cancer: Yes Cardiac Catheterization: Yes Cardiovascular Problems: Yes High Cholesterol: No Chemotherapy: No Chest Pain: Yes Congestive Heart Failure: No COPD: No Cerebrovascular Accident: No Coronary Artery Disease: Yes Diabetes: No Diminished Hearing: No Endocrine: No Gastrointestinal Disorders: Yes GERD: Yes Gout: Yes Genitourinary: No Headaches: No Hiatal Hernia: No Heparin Induced Thrombocytopen: No Hypertension: Yes Immune Disorder: No Implanted Vascular Access Dvce: No Kidney Stones: No Musculoskeletal: No Neurologic: No Psychiatric: No Reproductive: No Respiratory: Yes Migraines: No Radiation Therapy: No Renal Failure: No Seizures: No Sickle Cell Disease: No Sleep Apnea: Yes (2 L O2) Thyroid Disease: No Ulcer: No Tetanus Vaccination: Unknown Influenza Vaccination: No ?: Not Past Surgical History Abdominal Surgery: No AICD: No Arteriovenous Shunt: No Cardiac Surgery: Yes (STENT 13 YRS AGO) Ear Surgery: No Endocrine Surgery: No Eye Surgery: Yes (CATARACTS 04/27/2016) Genitourinary Surgery: No Gynecologic Surgery: No Insulin Pump: No Joint Replacement: No Neurologic Surgery: No Oral Surgery: No Pacemaker: No Thoracic Surgery: No Tonsillectomy: Yes Other Surgery: Yes (tonsillectomy, stent placement) Social History Alcohol Use: Yes (3-4 beers daily) Tobacco Use: No Substance Use: No Allergies-Medications (Allergen,Severity, Reaction): Coded Allergies: No Known Allergies (Unverified , 05/15/16) Reported Meds & Prescriptions Reported Meds & Active Scripts Active Reported Plavix (Clopidogrel Bisulfate) 75 Mg Tab 75 Mg PO DAILY Atorvastatin (Atorvastatin Calcium) 20 Mg Tab 20 Mg PO HS Aspirin 81 (Aspirin) 81 Mg Tabdr 81 Mg PO DAILY Allopurinol 300 Mg Tab 300 Mg PO DAILY Pantoprazole (Pantoprazole Sodium) 40 Mg Tab 40 Mg PO 2XWEEK Fish Oil 1200 mg ([place]-3 Fatty Acids) 1 Cap Cap 2,400 Mg PO DAILY Review of Systems Except as stated in HPI: all other systems reviewed are Neg Physical Exam Narrative GENERAL:Well appearing, no acute distress SKIN: Warm and dry. HEAD: Atraumatic. Normocephalic. EYES: Pupils equal and round. No injection or drainage. ENT: Moist mucous membranes NECK: Trachea midline. CARDIOVASCULAR: Tachycardic. No murmur appreciated. RESPIRATORY: Clear to auscultation. Breath sounds equal bilaterally. GASTROINTESTINAL: Abdomen soft, non-tender, nondistended. MUSCULOSKELETAL: No obvious deformities. NEUROLOGICAL: Awake and alert. No obvious cranial nerve deficits. Moving all extremities. PSYCHIATRIC: Appropriate mood and affect; insight and judgment normal. Data Data Last Documented VS Vital Signs Date Time Temp Pulse Resp B/P Pulse Ox O2 Delivery O2 Flow Rate FiO2 06/04/16 10:28 97.7 95 24 174/88 91 Room Air Orders Electrocardiogram (06/04/16 ) [facility] Medical Decision Making Medical Screen Exam Complete: Yes Emergency Medical Condition: Yes Differential Diagnosis Pneumonia, bronchitis, pulmonary fibrosis, congestive heart failure Narrative Course This is a 66-year-old male who has a history of pulmonary fibrosis who presents to the emergency department with increasing shortness of breath and productive cough. He's on clarithromycin but didn't like the side effects and wants to change antibiotics. He is very well-appearing. He is very pragmatic regarding his healthcare and doesn't want any additional testing if he feels like Dr. Hills did an extensive workup in the office earlier this week and he just had an inpatient workup. Patient is somewhat tachycardic. He was tachycardic on his last admission as well. This may be due to early alcohol withdrawal or his underlying respiratory disease. He declines any additional lab work or imaging which I think is reasonable. I will switch him to Levaquin. Diagnosis Primary Impression: Pulmonary fibrosis Patient Instructions: General Instructions Additional Instructions: If you develop severe chest pain, shortness of breath, sweating, lightheadedness , dizziness or difficulty breathing return to the emergency department immediately. Followup with your primary care physician in 2-3 days if your symptoms are not resolved. Med/Other Pt SpecificInfo: Prescription(s) given, Med Stopped ( clarithromycin should be stopped) Scripts Levofloxacin (Levaquin)500 Mg Ong084 Mg PO DAILY 7 Days Ref 0 Prov:Carmen Manzanares MD 06/04/16 Disposition: 01 DISCHARGE HOME Condition: Stable Carmen Manzanares MD Jun 04, 2016 11:02
[2016-06-04 11:46] VITALS: BP 136/80
--- NOTE | 2016-06-04 15:36 | EKG ---
Date Performed: 06/04/2016 Time Performed: 10:43:09 PTAGE: 66 years EKG: SINUS TACHYCARDIA WITH OCCASIONAL PREMATURE COMPLEXES WITH OCCASIONAL SUPRAVENTRICULAR AKHIL ATURE COMPLEXES ABNORMAL RHYTHM ECG PREVIOUS TRACING 05/15/2016 10.05.23 Compared to previous tracing, the patient is now tachycar dic. DOCTOR: Azul Chen Interpretating Date/Time 06/04/2016 15:35:07
== END 2016-06-04 11:47 | disposition home or self-care (01) ==
LOC: NEPC 10:22
DX: J84.10 Pulmonary fibrosis, unspecified (principal); I25.10 Atherosclerotic heart disease of native coronary artery without angina pectoris; I10 Essential (primary) hypertension; Z79.01 Long term (current) use of anticoagulants
CPT/HCPCS: 93005

== ENCOUNTER 2016-06-22 09:56 | Inpatient (IN) | payer MEDICARE, OTHER ==
[~2016-06-22] VITALS: Ht 177.8 cm; Wt 96.8 kg
[2016-06-22] VITALS (7 sets, daily range): BP systolic 112–135; BP diastolic 65–84; PULSE 104–130; RESP 16–23; TEMP 98.1–98.6; O2SAT 91–97
[~2016-06-22 09:56] MED LIST changes: +LEVA500T PO
[2016-06-22] MEDS ORDERED: SODIUM CHLORIDE 0.9% FLUSH 10 ML FLUSH IVF PRN (10:45)
--- NOTE | 2016-06-22 10:48 | PD ---
HPI Chief Complaint: Pain: Acute or Chronic Time Seen by Provider: 10:23 Travel History International Travel<30 days: No Contact w/Intl Traveler<30days: No Traveled to known affect area: No History of Present Illness HPI This patient complains of sharp stabbing knifelike pleuritic pain in his upper back. It goes across his shoulder blades on both sides. His reproducible with of breath. No injury. Denies fever or cough or chest pain. He saw his oncologist Dr. Dr. Jamie Bustillo this morning and he was sent here to get a CAT scan and rule out PE. Symptoms are moderate to severe. He is tachycardic in the 130s. He does have history of pulmonary fibrosis and wears oxygen at home. No alleviating factors. Duration is 4 days. PFSH Past Medical History Hx Anticoagulant Therapy: Yes (plavix) Arthritis: No Asthma: No Autoimmune Disease: No Heart Rhythm Problems: No Cancer: Yes Cardiac Catheterization: Yes Cardiovascular Problems: Yes (htn, stent) High Cholesterol: No Chest Pain: Yes Congestive Heart Failure: No COPD: No Cerebrovascular Accident: No Coronary Artery Disease: Yes Diabetes: No Diminished Hearing: No Endocrine: No Gastrointestinal Disorders: Yes GERD: Yes Gout: Yes Genitourinary: No Headaches: No Hiatal Hernia: No Heparin Induced Thrombocytopen: No Hypertension: Yes Immune Disorder: No Implanted Vascular Access Dvce: No Kidney Stones: No Musculoskeletal: No Neurologic: No Psychiatric: No Reproductive: No Respiratory: Yes (pulm fibrosis; 2L home O2) Migraines: No Radiation Therapy: No Renal Failure: No Seizures: No Sickle Cell Disease: No Sleep Apnea: Yes (2 L O2) Thyroid Disease: No Ulcer: No Past Surgical History Abdominal Surgery: No AICD: No Arteriovenous Shunt: No Cardiac Surgery: Yes (STENT 13 YRS AGO) Ear Surgery: No Endocrine Surgery: No Eye Surgery: Yes (CATARACTS 04/27/2016) Genitourinary Surgery: No Gynecologic Surgery: No Insulin Pump: No Joint Replacement: No Neurologic Surgery: No Oral Surgery: No Pacemaker: No Thoracic Surgery: No Tonsillectomy: Yes Other Surgery: Yes (tonsillectomy, stent placement) Social History Alcohol Use: Yes Tobacco Use: No Substance Use: No Allergies-Medications (Allergen,Severity, Reaction): Coded Allergies: No Known Allergies (Unverified , 05/15/16) Reported Meds & Prescriptions Reported Meds & Active Scripts Active Reported Plavix (Clopidogrel Bisulfate) 75 Mg Tab 75 Mg PO DAILY Atorvastatin (Atorvastatin Calcium) 20 Mg Tab 20 Mg PO HS Aspirin 81 (Aspirin) 81 Mg Tabdr 81 Mg PO DAILY Allopurinol 300 Mg Tab 300 Mg PO DAILY Pantoprazole (Pantoprazole Sodium) 40 Mg Tab 40 Mg PO 2XWEEK Fish Oil 1200 mg ([place]-3 Fatty Acids) 1 Cap Cap 2,400 Mg PO DAILY Review of Systems General / Constitutional: No: Fever Eyes: No: Visual changes HENT: No: Headaches Cardiovascular: Positive: Tachycardia, No: Chest Pain or Discomfort Respiratory: Positive: Shortness of Breath Gastrointestinal: No: Abdominal Pain Genitourinary: No: Dysuria Musculoskeletal: Positive: Pain Skin: No Rash Neurologic: No: Weakness Psychiatric: No: Depression Endocrine: No: Polydipsia Hematologic/Lymphatic: No: Easy Bruising Physical Exam Narrative GENERAL: Well-nourished, well-developed patient in no apparent distress. SKIN: Focused skin assessment reveals no rash and nodules. Skin is Warm and dry. HEAD: Atraumatic. Normocephalic. EYES: Pupils equal and round. No scleral icterus. No injection or drainage. ENT: No nasal bleeding or discharge. Mucous membranes pink and moist. NECK: Trachea midline. No JVD. CARDIOVASCULAR: Regular rate and rhythm. No murmur appreciated. Tachycardic at 135 RESPIRATORY: No accessory muscle use. There are some very scant basilar crackles but no wheezes or rhonchi. Breath sounds equal bilaterally. GASTROINTESTINAL: Abdomen soft, non-tender, nondistended. Hepatic and splenic margins not palpable. MUSCULOSKELETAL: No obvious deformities. No clubbing. No cyanosis. No edema. NEUROLOGICAL: Awake and alert. No obvious cranial nerve deficits. Motor grossly within normal limits. Normal speech. PSYCHIATRIC: Appropriate mood and affect; insight and judgment normal. Data Data Last Documented VS Vital Signs Date Time Temp Pulse Resp B/P Pulse Ox O2 Delivery O2 Flow Rate FiO2 06/22/16 13:15 120 20 117/65 97 Nasal Cannula 2 06/22/16 09:58 98.6 Orders Complete Blood Count With Diff (06/22/16 10:31) Basic Metabolic Panel (Bmp) (06/22/16 10:31) Act Partial Throm Time (Ptt) (06/22/16 10:31) Prothrombin Time / Inr (Pt) (06/22/16 10:31) Iv Access Insert/Monitor (06/22/16 10:31) Electrocardiogram (06/22/16 10:31) Ecg Monitoring (06/22/16 10:31) Oximetry (06/22/16 10:31) Oxygen Administration (06/22/16 10:31) Chest, Single Ap (06/22/16 10:31) Sodium Chloride 0.9% Flush (Ns Flush) (06/22/16 10:45) Ct Pulmonary Angiogram (06/22/16 ) Iohexol 350 Inj (Omnipaque 350 Inj) (06/22/16 12:51) Furosemide Inj (Lasix Inj) (06/22/16 14:45) Admit Order (Ed Use Only) (06/22/16 16:03) Labs Laboratory Tests Test 06/22/16 10:40 White Blood Count 25.3 TH/MM3 Red Blood Count 4.38 MIL/MM3 Hemoglobin 13.6 GM/DL Hematocrit 39.8 % Mean Corpuscular Volume 90.7 FL Mean Corpuscular Hemoglobin 31.0 PG Mean Corpuscular Hemoglobin 34.2 % Concent Red Cell Distribution Width 13.6 % Platelet Count 486 TH/MM3 Mean Platelet Volume 7.2 FL Neutrophils (%) (Auto) 88.7 % Lymphocytes (%) (Auto) 5.1 % Monocytes (%) (Auto) 5.4 % Eosinophils (%) (Auto) 0.5 % Basophils (%) (Auto) 0.3 % Neutrophils # (Auto) 22.4 TH/MM3 Lymphocytes # (Auto) 1.3 TH/MM3 Monocytes # (Auto) 1.4 TH/MM3 Eosinophils # (Auto) 0.1 TH/MM3 Basophils # (Auto) 0.1 TH/MM3 CBC Comment DIFF FINAL Differential Comment Prothrombin Time 12.2 SEC Prothromb Time International 1.1 RATIO Ratio Activated Partial 29.3 SEC Thromboplast Time Sodium Level 134 MEQ/L Potassium Level 4.3 MEQ/L Chloride Level 97 MEQ/L Carbon Dioxide Level 30.1 MEQ/L Anion Gap 7 MEQ/L Blood Urea Nitrogen 9 MG/DL Creatinine 0.98 MG/DL Estimat Glomerular Filtration 76 ML/MIN Rate Random Glucose 116 MG/DL Calcium Level 9.2 MG/DL [facility] Medical Decision Making Medical Screen Exam Complete: Yes Emergency Medical Condition: Yes Medical Record Reviewed: Yes Differential Diagnosis Pulmonary embolus, pleurisy, pneumonia, pneumothorax Narrative Course I have reviewed the patient's electronic medical record. I reviewed his April 2016 admission for chest pain and shortness of breath. He had a CTA at that time negative for PE. He does have pulmonary fibrosis IV placed Extended cardiac monitoring reveals sinus tachycardia in the 130s I reviewed his EKG which shows sinus tachycardia at 131 without ectopy I reviewed his chest x-ray which shows no pneumothorax CBC shows significant leukocytosis of 25,000 Metabolic profile reasonably normal Coagulation studies are normal CT pulmonary angiogram was done to evaluate for pulmonary embolus. He does not have a pulmonary embolus. There are several findings as noted by radiologist including some small bilateral pleural effusions and small pericardial effusion and some interstitial fibrosis and nodules which are not new. Etiology of his pleuritic pain is not entirely clear despite the large workup. He still remains tachycardic and uncomfortable I've called his primary physician Dr. Woodard who will hospitalize him to further look into the problem. Diagnosis Primary Impression: Pleuritic pain Additional Impressions: Shortness of breath at rest Tachycardia Admitting Information Admitting Physician Requests: Admit Rachid Joel MD Jun 22, 2016 10:48
[2016-06-22 10:51] LABS: AUTOMATED NEUTROPHIL # 22.4 TH/MM3 (1.8-7.7); BASOPHIL # 0.1 TH/MM3 (0-0.2); BASOPHIL % 0.3 % (0.0-2.0); EOSINOPHIL # 0.1 TH/MM3 (0-0.4); EOSINOPHIL % 0.5 % (0.0-4.0); HEMATOCRIT 39.8 % (39.0-51.0); HEMO FLAGS DIFF FINAL; LYMPH % 5.1 % (9.0-44.0); LYMPHOCYTE # 1.3 TH/MM3 (1.0-4.8); MEAN CELL VOLUME 90.7 FL (80.0-100.0); MEAN CORPUSCULAR HGB CONC 34.2 % (32.0-36.0); MONO % 5.4 % (0.0-8.0); NEUT % 88.7 % (16.0-70.0); PLATELET COUNT 486 TH/MM3 (150-450); RED BLOOD COUNT 4.38 MIL/MM3 (4.50-5.90); RED CELL DISTRIBUTION WIDTH 13.6 % (11.6-17.2); WHITE BLOOD COUNT 25.3 TH/MM3 (4.0-11.0)
[2016-06-22 11:00] LABS: APTT (PATIENT) 29.3 SEC (24.3-30.1); INTERNATIONAL NORMALIZED RATIO 1.1 RATIO; PROTHROMBIN TIME - PATIENT 12.2 SEC (9.8-11.6)
--- NOTE | 2016-06-22 11:07 | RADRPT ---
EXAM DATE/TIME: 06/22/2016 10:43 [facility] COMPARISON: CHEST SINGLE AP, May 15, 2016, 11:26. INDICATIONS : Shortness of breath, bilateral scapular pain. MEDICAL HISTORY : Hypertension. Pulmonary Fibrosis. Lymphoplasmacytic Lymphoma. SURGICAL HISTORY : Coronary artery stent. ENCOUNTER: Initial ACUITY: 4 - 6 days PAIN SCORE: 10/10 LOCATION: Bilateral scapulas. FINDINGS: The cardiac silhouette is enlarged in transverse diameter. The lungs are hypoinflated. There is subs egmental atelectasis in the both bases. No pleural effusions are identified. CONCLUSION: 1. Cardiomegaly with hypoinflation bibasilar atelectasis Isreal Will MD on June 22, 2016 at 11:05 Board Certified Radiologist. This report was verified electronically.
[2016-06-22 11:13] LABS: BICARBONATE 30.1 MEQ/L (21.0-32.0); POTASSIUM 4.3 MEQ/L (3.5-5.1)
[2016-06-22] MEDS ORDERED: IOHEXOL 350 MG/ML 10 ML VIAL (for RAD DIAG) IV ONE (12:51)
--- NOTE | 2016-06-22 14:02 | RADRPT ---
EXAM DATE/TIME: 06/22/2016 12:40 [facility] COMPARISON: CT PULMONARY ANGIOGRAM, May 15, 2016, 13:23. INDICATIONS : Upper back/shoulder pain and tachycardia. IV CONTRAST: 60 cc Omnipaque 350 (iohexol) IV RADIATION DOSE: 22.96 CTDIvol (mGy) MEDICAL HISTORY : Lymphoma. Hypertension. Pulmonary fibrosis SURGICAL HISTORY : Cardiac stents ENCOUNTER: Initial ACUITY: 4 - 6 days PAIN SCALE: 7/10 LOCATION: Bilateral upper chest TECHNIQUE: Volumetric scanning of the chest was performed using a pulmonary embolism protocol MIP images were re constructed. Using automated exposure control and adjustment of the mA and/or kV according to patien t size, radiation dose was kept as low as reasonably achievable to obtain optimal diagnostic quality images. FINDINGS: The examination is of good diagnostic quality. The pulmonary arteries are widely patent. No pulmonary embolus is seen. The heart is enlarged. There is atherosclerotic plaquing of the coronary arteries. There is a small p ericardial effusion. There are some scattered nodes within the superior mediastinum. The largest is o n the right and measures 1.6 cm. This is stable in size compared to previous. There is a 2 cm node in the right andrew as well. This is unchanged compared to previous. There is interstitial fibrotic change throughout both lungs. There is diffuse pulmonary edema and sma ll bilateral effusions. The visualized bony structures are grossly intact. Visualized portions of upper abdomen are intact. CONCLUSION: 1. No pulmonary embolus identified. 2. Interstitial fibrotic changes with superimposed interstitial edema and bilateral effusions suggest ing congestive failure. 3. Small pericardial effusion. 4. Atherosclerotic plaquing of the coronary arteries. Benja Yeager MD on June 22, 2016 at 13:58 Board Certified Radiologist. This report was verified electronically.
[2016-06-22] MEDS ORDERED: FUROSEMIDE 100 MG/10 ML VIAL IV PUSH ONE (14:45)
--- NOTE | 2016-06-22 16:06 | EKG ---
Date Performed: 06/22/2016 Time Performed: 10:33:40 PTAGE: 66 years EKG: SINUS TACHYCARDIA NONSPECIFIC T-WAVE ABNORMALITY ABNORMAL RHYTHM ECG NO PREVIOUS TRACING DOCTOR: Azul Chen Interpretating Date/Time 06/22/2016 16:05:23
[2016-06-22] MEDS ORDERED: ZOLPIDEM TARTRATE 5 MG TAB PO PRN (17:00)
[2016-06-22] MEDS ORDERED: BISACODYL 10 MG SUPP RECTAL PRN (17:00)
[2016-06-22] MEDS ORDERED: NALOXONE HCL 0.4 MG/ML AMP IV PRN (17:00)
[2016-06-22] MEDS ORDERED: SODIUM CHLORIDE 0.9% FLUSH 10 ML FLUSH IV FLUSH PRN (17:00)
[2016-06-22] MEDS ORDERED: MAGNESIUM HYDROXIDE SUSP 30 ML CUP PO PRN (17:00)
[2016-06-22] MEDS ORDERED: Vancomycin Consult Pharmacy 1 EA OTHER SCH (17:15)
[2016-06-22] MEDS: PIPERACIL-TAZO 3.375 GM PREMIX 50 ML IV SCH (17:36)
[2016-06-22] MEDS: ACETAMINOPHEN 325 MG TAB PO PRN ×2 (17:39→22:44)
--- NOTE | 2016-06-22 21:08 | MB ---
cc: KATHERINE GALEANO DATE OF CONSULTATION 06/22/[address] Woodard REASON FOR CONSULTATION Evaluation shortness of breath and pulmonary congestion. HISTORY OF PRESENT ILLNESS Mr. Tobias is a 66-year-old white male with history of pulmonary fibrosis, history of IgG variant lymphoblastic lymphoma. He follows with Dr. Bustillo. He has been having shortness of breath for the last three weeks or so earlier. Prior to that, he was able to play golf and carry on his activity. He recently took a course of antibiotics, did not get better. Today he went to see Dr. Bustillo. He was having a lot of pleuritic pain and right shoulder pain and he was sent to the hospital for further evaluation. He had a CTA of the chest done. It does not show any pulmonary embolism. It shows interstitial fibrotic changes and small pleural effusion and has atherosclerotic plaque of the coronary arteries. He was given a couple of Tylenol in the emergency room. He feels much better now. PAST MEDICAL HISTORY 1. History of pulmonary fibrosis 2. Lymphoblastic lymphoma 3. Coronary artery disease status post stent placement 4. History of gastroesophageal reflux disease, 5. History of right eye cataract surgery done 6. History of tonsillectomy. MEDICATIONS Currently taking 1. Allopurinol 300 mg a day 2. Aspirin 81 mg a day. 3. Plavix 75 mg a day. 4. Vancomycin IV. 5. Zosyn IV. 6. Ambien 5 mg at night time. ALLERGIES NO KNOWN DRUG ALLERGIES. SOCIAL HISTORY He used to work before. He is retired. He has history of smoking, which he quit 18 years ago. He takes a couple of drinks at night. FAMILY HISTORY He is . He has to children. REVIEW OF SYSTEMS Normally he is up, around and active. He was using oxygen which he stopped using and recently started using again because he was becoming more short of breath. He has no sleep apnea. No DVT or pulmonary embolism. PHYSICAL EXAMINATION GENERAL: Elderly male not in acute distress. VITAL SIGNS: Blood pressure 117/84, heart rate 120, respirations 20, temperature 98. HEENT: Pupils are equal and react to light. He has a right eye cataract surgery done. Oral mucosa, nasal mucosa normal. NECK: Supple. JVP not raised. CHEST: Equal bilaterally. He has inspiratory rales. CARDIOVASCULAR: S1, S2 normal. ABDOMEN: Soft, nondistended. Bowel sounds are present. EXTREMITIES: No edema. [employer]TER [employer]: Alert and oriented x3. No focal deficit. LABORATORY FINDINGS WBC count is 25.3, hemoglobin 13.6, hematocrit 39.8, MCV 90, platelet count 486. Sodium 134, potassium 4.3, chloride 97, CO2 30, BUN nine, creatinine 0.98. IMPRESSION 1. Shortness of breath with pleuritic chest pain and right shoulder pain which has resolved with Tylenol. 2. Pulmonary fibrosis. 3. No pulmonary embolism. 4. History of IgG variant lymphoblastic lymphoma. PLAN I discussed with the patient. He is on antibiotic which we will continue and check his cultures. Supplement his oxygen. Keep the saturation greater than 92%. Aerosol treatment. He is on Plavix and aspirin. The patient is known to Dr. Gipson who will follow this patient tomorrow. Thank you, Dr. Woodard, for this consultation. MD SWETHA Catalan/ /7:28 PM /8:47 PM MTDFelicitas
[2016-06-22] MEDS: VANCOMYCIN INJ 1,250 MG in SODIUM CHLOR 0.9% 250 ML INJ 250 ML IV SCH (21:35)
[2016-06-22] MEDS: SODIUM CHLORIDE 0.9% FLUSH 10 ML FLUSH IV FLUSH SCH (21:36)
[2016-06-23] VITALS (10 sets, daily range): BP systolic 101–124; BP diastolic 60–75; PULSE 87–115; RESP 16–22; TEMP 97.3–98.8; O2SAT 94–98
[2016-06-23] MEDS: PIPERACIL-TAZO 3.375 GM PREMIX 50 ML IV SCH ×4 (00:16→18:02)
[2016-06-23] MEDS: DOCUSATE SODIUM 100 MG CAP PO SCH ×2 (06:00→18:00)
[2016-06-23 07:48] LABS: AUTOMATED NEUTROPHIL # 14.4 TH/MM3 (1.8-7.7); BASOPHIL # 0.1 TH/MM3 (0-0.2); BASOPHIL % 0.6 % (0.0-2.0); EOSINOPHIL # 0.3 TH/MM3 (0-0.4); EOSINOPHIL % 1.7 % (0.0-4.0); HEMATOCRIT 35.6 % (39.0-51.0); HEMO FLAGS DIFF FINAL; LYMPH % 7.8 % (9.0-44.0); LYMPHOCYTE # 1.3 TH/MM3 (1.0-4.8); MEAN CELL VOLUME 90.1 FL (80.0-100.0); MEAN CORPUSCULAR HEMOGLOBIN 31.1 PG (27.0-34.0); MEAN CORPUSCULAR HGB CONC 34.5 % (32.0-36.0); MONO % 5.5 % (0.0-8.0); NEUT % 84.4 % (16.0-70.0); PLATELET COUNT 404 TH/MM3 (150-450); RED BLOOD COUNT 3.95 MIL/MM3 (4.50-5.90); RED CELL DISTRIBUTION WIDTH 14.1 % (11.6-17.2); WHITE BLOOD COUNT 17.1 TH/MM3 (4.0-11.0)
[2016-06-23 08:22] LABS: ANION GAP 6 MEQ/L (5-15); BICARBONATE 34.9 MEQ/L (21.0-32.0); BLOOD UREA NITROGEN 13 MG/DL (7-18); CHLORIDE 94 MEQ/L (98-107); GLOMERULAR FILTRATION RATE 72 ML/MIN (>89); POTASSIUM 4.2 MEQ/L (3.5-5.1); SODIUM (NA) 135 MEQ/L (136-145)
[2016-06-23] MEDS: SODIUM CHLORIDE 0.9% FLUSH 10 ML FLUSH IV FLUSH SCH ×2 (08:57→20:38)
[2016-06-23] MEDS: VANCOMYCIN INJ 1,250 MG in SODIUM CHLOR 0.9% 250 ML INJ 250 ML IV SCH ×2 (08:58→20:37)
[2016-06-23] MEDS: ASPIRIN EC 81 MG TABEC PO SCH (08:59)
[2016-06-23] MEDS: CLOPIDOGREL 75 MG TAB PO SCH (09:01)
[2016-06-23] MEDS: ALLOPURINOL 300 MG TAB PO SCH (09:01)
[2016-06-23] MEDS: ACETAMINOPHEN 325 MG TAB PO PRN (09:19)
--- NOTE | 2016-06-23 09:27 | MH ---
cc: MICHELE CANCHOLA DATE OF ADMISSION 06/22/2016 CHIEF COMPLAINT Chest pain, shortness of breath, coughing and tachycardia. HISTORY OF PRESENT ILLNESS Declan Tobias is a 66-year-old male. I see him in my office as an outpatient. He came in the last week and was at his overall baseline. He complains of chronic shortness of breath and tachycardia. He had been frustrated with his chronic lung disease and we came to the conclusion anxiety was a large component of his issues. He started having more chest pain and ended up going to Dr. Bustillo for a follow-up visit. Dr. Bustillo sent him over to the emergency room for tachycardia and the patient states that he was also looking at his labs as well and reported to him that they did not look good. The patient then presented to the emergency room with complaints of knife-like pleuritic pain in his right side of his back. He was found to have a pulse in the 130s and was found with the imaging and labs as noted below. The patient states that he feels somewhat better since receiving the antibiotics and states he is still having some right-sided chest pain with stabbing pain going to the right side of his back. He states when he breathes in deeply, he holds his respirations due to the pain. LABORATORY DATA WBCs 25,000, hemoglobin 12.3, platelets 404. Sodium 135, creatinine 1.03, glucose 121, troponin is negative, lactic acid was normal, glucose 121. INR 1.1. IMAGING STUDIES Chest x-ray shows cardiomegaly with hypoinflation and basilar atelectasis. CTA of the chest shows no PE, however there is interstitial fibrotic changes with interstitial edema and bilateral effusions suggesting CHF, small pericardial effusions and atherosclerosis of the coronary arteries. PAST MEDICAL HISTORY 1. Coronary artery disease 2. Recurrent chest pain 3. Gastroesophageal reflux disease 4. Gout 5. Hypertension 6. Pulmonary fibrosis 7. Sleep apnea PAST SURGICAL HISTORY 1. Coronary stents 2. Cataract surgery 3. Tonsillectomy SOCIAL HISTORY No alcohol, tobacco or illicit drug usage. ALLERGIES NO KNOWN DRUG ALLERGIES. MEDICATIONS 1. Plavix 75 daily 2. Atorvastatin 20 at bedtime 3. Aspirin 81 mg daily 4. Allopurinol 300 daily 5. Pantoprazole 40 mg 6. Fish oil 2400 mg REVIEW OF SYSTEMS He has chest pain on the right side greater than the left with deep inspirations. States he has a dry, harsh cough. He notes general pain somewhat in all large joints and generalized anxiety and frustration. Negative 14-point review of systems otherwise. PHYSICAL EXAM VITAL SIGNS: Temperature 97.5, pulse 87, respirations 16, blood pressure 101/60, pulse ox 97 on two liters GENERAL: He is an alert male sitting up. He is on O2. He becomes tachypneic when he talks and speaks in three word sentences. HEENT: Oropharynx is clear. Carotids are clear. No JVD. CHEST: Coarse crackles to the apices, good air movement. No consolidation and a harsh cough with deep breaths. He notes he has pain in the right side of his chest when he breathes in deeply. CARDIOVASCULAR: Regular rate and rhythm. No murmurs, rubs, clicks or gallops. ABDOMEN: Soft and nontender. EXTREMITIES: No edema. SKIN: Clear. NEUROLOGIC: A and O x3. Strength is 4/5 in all extremities. ASSESSMENT 1. Pulmonary fibrosis 2. Pneumonia 3. CHF 4. Lymphoblastic lymphoma 5. Coronary artery disease 6. Hypertension PLAN 1. Admit to observation 2. Echocardiogram 3. Zosyn IV 4. Vancomycin IV 5. Aspirin 81 mg daily 6. Plavix daily 7. Colace 100 b.i.d. 8. Lovenox 40 subcu daily 9. Lasix 40 IV daily 10. Follow up blood cultures 11. Telemetry 12. Physical therapy 13. O2 14. Pulmonary consult 15. Cardiology consult 16. Dr. Bustillo consult Michele Canchola MD RP/ODIN /8:48 AM /9:08 AM
[2016-06-23] MEDS: POTASSIUM CHLORIDE 10 MEQ CONTROLLED RELEASE TAB PO SCH (11:24)
[2016-06-23] MEDS: FUROSEMIDE 40 MG/4 ML VIAL IV PUSH SCH (11:24)
--- NOTE | 2016-06-23 12:03 | EC ---
Study Study Date:06/23/2016 STUDY CONCLUSIONS SUMMARY - Procedure narrative: Transthoracic echocardiography. Image quality was poor. Scanning was performed from the parasternal, apical, and subcostal acoustic windows. - Left ventricle: The cavity size was normal. Wall thickness was normal. Systolic function was normal. The estimated ejection fraction was in the range of 50% to 55%. Regional wall motion abnormalities cannot be excluded. - Aortic valve: Poorly visualized. - Tricuspid valve: Trace to mild regurgitation. - Pulmonary arteries: PA peak pressure: 52mm Hg (S). If LV function is below 40, please consider prescribing an ACEI or ARB or document rationale for non-use. PROCEDURE DATA STUDY STATUS: Elective. Procedure: Transthoracic echocardiography. Image quality was poor. Scanning was performed from the parasternal, apical, and subcostal acoustic windows. Study completion: The patient tolerated the procedure well. Transthoracic echocardiography. M-mode, complete 2D, complete spectral Doppler, and color Doppler. Height: Height: 70in. Weight: Weight: 209.6lb. Body mass index: BMI: 30.1kg/m^2. Body surface area: BSA: 2.13m^2. Patient status: Inpatient. CARDIAC ANATOMY LEFT VENTRICLE: The cavity size was normal. Wall thickness was normal. Systolic function was normal. The estimated ejection fraction was in the range of 50% to 55%. Regional wall motion abnormalities cannot be excluded. AORTIC VALVE: Poorly visualized. Doppler: Transvalvular velocity was within the normal range. There was no stenosis. No regurgitation. Valve area: 2.16cm^2(VTI). Indexed valve area: 1.01cm^2/m^2 (VTI). Valve area: 2.47cm^2 (Vmax). Indexed valve area: 1.16cm^2/m^2 (Vmax). Mean gradient: 4mm Hg (S). AORTA: Aortic root: The aortic root was normal in size. MITRAL VALVE: Structurally normal valve. Doppler: Transvalvular velocity was within the normal range. There was no evidence for stenosis. No regurgitation. Peak gradient: 3mm Hg (D). LEFT ATRIUM: The atrium was normal in size. RIGHT VENTRICLE: The cavity size was normal. Wall thickness was normal. PULMONIC VALVE: Doppler: Transvalvular velocity was within the normal range. There was no evidence for stenosis. No regurgitation. TRICUSPID VALVE: Structurally normal valve. Doppler: Transvalvular velocity was within the normal range. Trace to mild regurgitation. PULMONARY ARTERY: The main pulmonary artery was normal-sized. Systolic pressure was within the normal range. RIGHT ATRIUM: The atrium was normal in size. PERICARDIUM: There was no pericardial effusion. SYSTEMIC VEINS: Inferior vena cava: The vessel was normal in size. Patient weight: 209.6lb _Ejection fraction:_ 65-75% _Fractional shortening:_ 32% up to 5Kg 5-11.5Kg 11.6-22.9Kg 23-45Kg 45-57Kg Aortic Root 7-13 <17 13-22 17-27 17-27 LA diam 6-13 <23 24-38 33-47 37-40 RVID 10-17 7-15 7-15 7-18 8-17 LVIDd 12-22 <32 24-38 33-47 37-40 LVPW 2-4 3-6 5-7 6-8 7-8 IVS 2-4 3-6 5-7 6-8 7-8 BASIC MEASUREMENTS ADULT NORMAL Left ventricle LV internal dimension, ED, chordal *41.8 mm 43-52 level, PLAX LV internal dimension, ES, chordal 35 mm 23-38 level, PLAX Fractional shortening, chordal level, *16 % >29 PLAX LV posterior wall thickness, ED 9.88 mm IVS/LVPW ratio, ED 1.01 <1.3 Ventricular septum Septal thickness, ED 9.93 mm Aortic valve Leaflet separation 23 mm 15-26 Aorta Root diameter, ED 35 mm Left atrium Anterior-posterior dimension 21 mm Anterior-posterior dimension index 0.99 cm/m^2 <2.2 BASIC MEASUREMENTS ADULT NORMAL Aortic valve Leaflet separation 23 mm 15-26 DOPPLER MEASUREMENTS ADULT NORMAL Main pulmonary artery Pressure, S *52 mm Hg =30 Aortic valve Peak velocity, S 119 cm/s Mean velocity, S 91.9 cm/s VTI, S 18.9 cm Mean gradient, S 4 mm Hg Valve area, VTI 2.16 cm^2 Valve area index, VTI 1.01 cm^2/m^2 Valve area, Vmax 2.47 cm^2 Valve area index, Vmax 1.16 cm^2/m^2 Mitral valve Peak E-wave velocity 80.9 cm/s Peak A-wave velocity 64.2 cm/s Deceleration time 183 ms 150-230 Peak gradient, D 3 mm Hg Peak E/A ratio 1.3 Tricuspid valve Regurgitant peak velocity 330 cm/s Peak RV-RA gradient, S 44 mm Hg Maximal regurgitant velocity 330 cm/s Systemic veins Estimated CVP 10 mm Hg Right ventricle RV pressure, S *54 mm Hg <30 Pulmonic valve Peak velocity, S 66.2 cm/s LEGEND: Mean values are shown as u=mean value. Asterisk (*) cooley values outside specified normal range. Prepared and signed by Edin Reece [id number]
[2016-06-23] MEDS: ENOXAPARIN SODIUM 40 MG/0.4 ML SYRINGE SQ SCH (18:05)
--- NOTE | 2016-06-23 21:34 | MB ---
cc: TANA JUDD DATE OF CONSULTATION: 06/23/2016 REASON FOR CONSULTATION: Evaluation of tachycardia HISTORY OF PRESENT ILLNESS: Declan Tobias is a 66 year-old patient who I have followed, with a history of coronary artery disease and severe lung disease. He has been on oxygen in the past. He went off oxygen a few months ago. He has had some pulmonary infections, received antibiotics. He came into the hospital for increasing shortness of breath and was also having pleuritic type chest pain. Pleuritic chest pain got better with Tylenol. The CTA showed no evidence for pulmonary embolism. He is known to have severe lung disease and severe hypoxemia without oxygen. Since admission his tachycardia has resolved and he is back in normal rate. He has not had any typical anginal type symptoms. He has known coronary artery disease with LAD drug-eluding stent December 23, 2004. PAST MEDICAL HISTORY: 1. Prior kidney injury 2. Coronary disease 3. Mildly impaired LV function on echo from July 2015. 4. COPD with pulmonary fibrosis. 5. Dyslipidemia. 6. Gastroesophageal reflux disease. 7. Gout. 8. Hyperlipidemia. 9. Hypertension. 10. 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 11. Previous heart attack. 12. Non-STEMI, December 23, 2004. 13. Previous sepsis. MEDICATIONS: In the past included: 1. Allopurinol. 2. Aspirin. 3. Clopidogrel 4. Fish oil. 5. Lipitor 20 milligrams 6. Pentoprazole. ALLERGIES: NONE KNOWN. FAMILY HISTORY: Negative for heart disease. SOCIAL HISTORY: Smoked from age 23 to age 48. REVIEW OF SYSTEMS: Otherwise noncontributory PHYSICAL EXAMINATION: Physical exam shows a well-developed alert white male in no acute distress. Vital signs: He is slightly tachypneic. He was previously tachycardiac. His heart rate is normal now. is Prilosec tachycardiac. Cervix normal now. HEENT: Exam unremarkable. Neck: JVD, no bruits. Chest: Shows Velcro rales at the bases. Cardiac: S1-S2, regular rate and rhythm. There is no murmurs. Abdomen: Soft, nontender. Extremities: Reveal no clubbing, cyanosis or edema. EKG showed sinus tachycardia with no ischemic changes. LABORATORY DATA: Charted. Troponin was less than 0.02. Echocardiogram: Doppler study showed poor quality study, overall left ventricular function appears preserved. IMPRESSION: Most likely sinus tachycardia due to his primary lung disease processes. By being put on oxygen his heart rate has returned to normal. He is no longer tachycardiac. I doubt any acute ACS. Cardiac-tavares, I think he is more stable now. I will be available to follow him as needed. Thank you very much for asking me to see him. Please do not hesitate to call me for questions. MD NATE Galeana/MARIANGEL /6:26 PM /9:16 PM
--- NOTE | 2016-06-23 21:35 | MB ---
cc: SELENA SOLORIO M.D. DATE OF CONSULTATION 06/23/[address] Woodard REASON FOR CONSULTATION Hematology consulted to render opinion regarding patient with lymphoma admitted with shortness of breath and chest pain. HISTORY OF PRESENT ILLNESS Patient is a very pleasant 66-year-old male with history of lymphoplasmacytic lymphoma currently under observation admitted to the hospital with complaint of increased shortness of breath, tachycardia and back pain. He was admitted to the hospital in April with shortness of breath. He had atypical chest pain. At that time a cardiac workup was unremarkable. He was discharged home and went to have followup with Pulmonology. He was treated with prednisone and clarithromycin initially. He however, could not clarithromycin and was switched to Levaquin. He completed the course last week. He was feeling better last week and was able to play golf, however, the next day he developed a sharp pain in his back and he had increased shortness of breath, palpitations. When I saw him in clinic yesterday he was clammy and his heart rate was more than 130. He was directed to go to the emergency room to rule out pulmonary embolism. He had a CT angiogram which did not show any pulmonary embolism and no acute process. He was noted to have leukocytosis. He was started on antibiotic. Today he is feeling much better. He stated his back pain is at least 50% better. His shortness of breath also has improved. He denies fever or chills. Denies any night sweats. Denies chest pressure. Denies any nausea or vomiting, diarrhea or abdominal pain. Denies any headache, focal numbness or weakness. PAST MEDICAL HISTORY 1. 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 2. Hypertension 3. Gout. 4. Schatzki's ring. PAST SURGICAL HISTORY 1. Coronary artery stent placement. 2. Colonoscopy. FAMILY HISTORY Noncontributory. SOCIAL HISTORY No tobacco, alcohol use. ALLERGIES NO KNOWN DRUG ALLERGIES. CURRENT MEDICATIONS 1. Lasix. 2. Potassium. 3. Allopurinol. 4. Aspirin. 5. Plavix. 6. Vancomycin. 7. Zosyn. 8. Lovenox. 9. Colace. REVIEW OF SYSTEMS CONSTITUTIONAL: As above. EYES: Denies blurry vision, double vision. ENT: No mouth sores or voice changes. CARDIOVASCULAR: As above. RESPIRATORY: As above. GASTROINTESTINAL: Denies any nausea, vomiting, diarrhea or abdominal pain. GENITOURINARY: No dysuria, hematuria. MUSCULOSKELETAL: As above. HEMATOLOGIC: As above. ENDOCRINE: Negative. DERMATOLOGIC: NEGATIVE. PSYCHIATRIC: Negative. NEUROLOGIC: Negative. PHYSICAL EXAMINATION VITAL SIGNS: Temperature 97.3, pulse 100, blood pressure 124/67, O2 saturation 96% on 2 liters nasal cannula. GENERAL: He is alert and oriented times three. No acute distress. HEENT: Atraumatic, normocephalic. Pupils equal, round reactive to light. Extraocular muscles intact. No Scleral icterus. Oropharynx moist mucosa. No lesion or thrush. No mucositis. NECK: No thyromegaly. No palpable mass. LYMPHATICS: No palpable cervical, clavicular, axillary, inguinal lymph node. CARDIOVASCULAR: Regular S1-S2. No murmur. LUNGS: Bilateral basilar crackles. No wheezing. ABDOMEN: Soft, nontender. I could not palpate liver or spleen. EXTREMITIES: No cyanosis or clubbing. No edema. BACK: No paravertebral tenderness. SKIN: No rash or petechiae. NEUROLOGIC: Nonfocal. LABORATORY DATA Reviewed. ASSESSMENT 1. Shortness of breath with back pain and tachycardia. CT angiogram did not show any pulmonary embolism. However, there are interstitial fibrotic changes with superimposed interstitial edema and bilateral effusion noted. There is also small pericardial effusion noted. He has an echocardiogram today which did not show any significant pericardial effusion. On presentation he has leukocytosis which is predominately neutrophils. He was started on antibiotic and his symptom has improved. His white blood cell count also trended down to 17,000. It appears he may have underlying infection/?pneumonia or inflammatory process that has improved. I do not think his symptom is due to his underlying lymphoplasmacytic lymphoma which has been stable. 2. IgG variant lymphoplasmacytic lymphoma. He has not received treatment. He is currently under observation. He has no palpable adenopathy or splenomegaly. CT angiogram did not show any adenopathy in the thorax. His repeat IgG level has trended down to 2960. His free kappa light chain also has trended down. The light chain ratio is stable. He has no evidence of progression of disease. 3. Coronary disease status post stent placement. 4. Pulmonary fibrosis. 5. Congestive heart failure on diuretic. RECOMMENDATIONS 1. Continue to monitor CBC. 2. No clear progression of lymphoma noted and no other hematology intervention planned at this time. 3. Continue antibiotic and supportive care. Thank you Dr. Woodard for asking us see this patient. MD PAWEL Lee/FRANCHESKA /5:39 PM /8:33 PM LOGAN
[2016-06-24] VITALS (8 sets, daily range): BP systolic 111–138; BP diastolic 59–75; PULSE 89–108; RESP 16–22; TEMP 97.3–98.1; O2SAT 92–100
[2016-06-24] MEDS: DOCUSATE SODIUM 100 MG CAP PO SCH ×2 (05:20→18:00)
[2016-06-24] MEDS: PIPERACIL-TAZO 3.375 GM PREMIX 50 ML IV SCH ×4 (05:20→18:20)
[2016-06-24 06:39] LABS: BICARBONATE 34.6 MEQ/L (21.0-32.0); POTASSIUM 3.6 MEQ/L (3.5-5.1)
[2016-06-24 06:46] LABS: AUTOMATED NEUTROPHIL # 9.6 TH/MM3 (1.8-7.7); BASOPHIL # 0.1 TH/MM3 (0-0.2); BASOPHIL % 0.9 % (0.0-2.0); EOSINOPHIL # 0.3 TH/MM3 (0-0.4); EOSINOPHIL % 2.6 % (0.0-4.0); HEMATOCRIT 33.2 % (39.0-51.0); HEMO FLAGS DIFF FINAL; LYMPH % 12.4 % (9.0-44.0); LYMPHOCYTE # 1.5 TH/MM3 (1.0-4.8); MEAN CELL VOLUME 89.9 FL (80.0-100.0); MEAN CORPUSCULAR HEMOGLOBIN 31.8 PG (27.0-34.0); MEAN CORPUSCULAR HGB CONC 35.3 % (32.0-36.0); MONO % 6.6 % (0.0-8.0); NEUT % 77.5 % (16.0-70.0); PLATELET COUNT 370 TH/MM3 (150-450); RED BLOOD COUNT 3.69 MIL/MM3 (4.50-5.90); RED CELL DISTRIBUTION WIDTH 13.8 % (11.6-17.2); WHITE BLOOD COUNT 12.3 TH/MM3 (4.0-11.0)
[2016-06-24] MEDS ORDERED: PHARMACY ORDERED LAB ONE (07:45)
[2016-06-24] MEDS ORDERED: LIPI40TA PO (08:36)
[2016-06-24] MEDS: CLOPIDOGREL 75 MG TAB PO SCH (08:37)
[2016-06-24] MEDS: ALLOPURINOL 300 MG TAB PO SCH (08:37)
[2016-06-24] MEDS: POTASSIUM CHLORIDE 10 MEQ CONTROLLED RELEASE TAB PO SCH (08:37)
[2016-06-24] MEDS: ASPIRIN EC 81 MG TABEC PO SCH (08:37)
[2016-06-24] MEDS: FUROSEMIDE 40 MG/4 ML VIAL IV PUSH SCH (08:38)
[2016-06-24] MEDS: SODIUM CHLORIDE 0.9% FLUSH 10 ML FLUSH IV FLUSH SCH ×2 (08:39→21:46)
[2016-06-24] MEDS: VANCOMYCIN INJ 1,250 MG in SODIUM CHLOR 0.9% 250 ML INJ 250 ML IV SCH (08:39)
--- NOTE | 2016-06-24 09:47 | PD.ONC.PN ---
Subjective Subjective Remarks Afebrile overnight. Patient feeling much less short of breath today. He is eager to feel 100% better so that he can get off the oxygen and go home. No chest pain. Objective Data Date Time Temp Pulse Resp B/P Pulse Ox O2 Delivery O2 Flow Rate FiO2 06/24/16 08:24 98 21 06/24/16 08:00 98.1 95 22 111/69 100 06/24/16 04:00 97.5 89 16 116/59 98 06/24/16 00:00 97.9 94 17 116/65 98 06/23/16 20:57 95 Nasal Cannula 2.00 06/23/16 20:00 110 06/23/16 20:00 97.5 115 18 120/65 95 06/23/16 16:00 97.9 104 22 122/69 97 06/23/16 12:28 97.3 100 18 124/67 96 06/23/16 11:09 18 06/23/16 10:51 94 Nasal Cannula 2.00 06/24/16 06/24/16 06/24/16 07:00 15:00 23:00 Intake Total 390 ml Balance 390 ml Result Diagram: 06/24/16 0531 06/24/16 0531 Laboratory Results Laboratory Tests Test 06/24/16 05:31 White Blood Count 12.3 TH/MM3 Red Blood Count 3.69 MIL/MM3 Hemoglobin 11.7 GM/DL Hematocrit 33.2 % Mean Corpuscular Volume 89.9 FL Mean Corpuscular Hemoglobin 31.8 PG Mean Corpuscular Hemoglobin 35.3 % Concent Red Cell Distribution Width 13.8 % Platelet Count 370 TH/MM3 Mean Platelet Volume 7.1 FL Neutrophils (%) (Auto) 77.5 % Lymphocytes (%) (Auto) 12.4 % Monocytes (%) (Auto) 6.6 % Eosinophils (%) (Auto) 2.6 % Basophils (%) (Auto) 0.9 % Neutrophils # (Auto) 9.6 TH/MM3 Lymphocytes # (Auto) 1.5 TH/MM3 Monocytes # (Auto) 0.8 TH/MM3 Eosinophils # (Auto) 0.3 TH/MM3 Basophils # (Auto) 0.1 TH/MM3 CBC Comment DIFF FINAL Differential Comment Sodium Level 137 MEQ/L Potassium Level 3.6 MEQ/L Chloride Level 96 MEQ/L Carbon Dioxide Level 34.6 MEQ/L Anion Gap 6 MEQ/L Blood Urea Nitrogen 10 MG/DL Creatinine 1.09 MG/DL Estimat Glomerular Filtration 67 ML/MIN Rate Random Glucose 93 MG/DL Calcium Level 8.8 MG/DL Culture Results Microbiology Date/Time Procedure Status Source Growth 06/22/16 17:10 Aerobic Blood Culture - Preliminary Resulted Blood Peripheral NO GROWTH IN 1 DAY 06/22/16 17:10 Anaerobic Blood Culture - Preliminary Resulted Blood Peripheral NO GROWTH IN 1 DAY 06/22/16 17:25 Aerobic Blood Culture - Preliminary Resulted Blood Peripheral NO GROWTH IN 1 DAY 06/22/16 17:25 Anaerobic Blood Culture - Preliminary Resulted Blood Peripheral NO GROWTH IN 1 DAY Administered Medications Medications (Trade) Dose Ordered Sig/Magda Route PRN Reason Start Time Stop Time Status Last Admin Dose Admin Allopurinol (Zyloprim) 300 mg DAILY PO 06/23/16 09:00 06/24/16 08:37 Aspirin (Ecotrin Ec) 81 mg DAILY PO 06/23/16 09:00 06/24/16 08:37 Clopidogrel Bisulfate (Plavix) 75 mg DAILY PO 06/23/16 09:00 06/24/16 08:37 Sodium Chloride (NS Flush) 2 ml BID IV FLUSH 06/22/16 21:00 06/24/16 08:39 Acetaminophen (Tylenol) 650 mg Q4H PRN PO TEMP > 100.4 06/22/16 17:00 06/23/16 09:19 Enoxaparin Sodium 40 mg 40 mg Q24H SQ 06/22/16 18:00 06/23/16 18:05 Piperacillin Sod/ Tazobactam Sod 50 ml @ 100 mls/hr Q6H IV 06/22/16 18:00 06/24/16 05:20 Vancomycin HCl/ Sodium Chloride (Vancomycin Inj/ NS 250 ml Inj) 262.5 ml @ 250 mls/hr Q12H IV 06/22/16 20:00 06/24/16 08:39 Furosemide (Lasix Inj) 40 mg DAILY IV PUSH 06/23/16 10:00 06/24/16 08:38 Potassium Chloride (KCl) 10 meq DAILY PO 06/23/16 10:00 06/24/16 08:37 Objective Remarks GENERAL: Middle aged male, sitting up in chair next to bed in [facility]. SKIN: Warm and dry. HEAD: Normocephalic. EYES: No injection or drainage. NECK: Supple, trachea midline. CARDIOVASCULAR: Regular rate and rhythm RESPIRATORY: diminished at bases. crackles heard in left base and right lung armstrong. on 2L O2 via [place] GASTROINTESTINAL: Abdomen soft, non-tender, nondistended. EXTREMITIES: No cyanosis or edema. NEUROLOGICAL: No obvious focal deficit. Awake, alert, and oriented x3. Assessment/Plan Problem List: (1) History of lymphoma Status: Chronic Plan: h/o IgG variant lymphoplasmacytic lymphoma. --has not received treatment. is currently under observation. --has no palpable adenopathy or splenomegaly. --CT angiogram did not show any adenopathy in the thorax. --repeat IgG level has trended down to 2960. --free kappa light chain also trended down. light chain ratio is stable. -- no evidence of progression of disease. (2) Shortness of breath at rest Status: Acute Plan: --Shortness of breath with back pain and tachycardia. --CT angiogram--no PE++ interstitial fibrotic changes with superimposed interstitial edema and bilateral effusion noted. +small pericardial effusion noted. --echocardiogram --> NO significant pericardial effusion. --On presentation he had leukocytosis which is predominately neutrophils. He was started on antibiotic and his symptoms improved. white blood cell count trending down. 25-->17-->12 may have underlying infection/?pneumonia or inflammatory process that has improved. --do not think his symptom is due to his underlying lymphoplasmacytic lymphoma which has been stable. Assessment 66y/o male with h/o lymphoma admitted with shortness of breath and chest pain. 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 Hypertension Gout. Schatzki's ring. h/o Coronary disease status post stent placement. Pulmonary fibrosis. Congestive heart failure on diuretic. Plan 1. continue antibiotics 2. monitor CBC Attending Statement The exam, history, and the medical decision-making described in the above note were completed with the assistance of the mid-level provider. I reviewed and agree with the findings presented. I attest that I had a [id number] encounter with the patient on the same day, and personally performed and documented my assessment and findings in the medical record. Feeling better. leukocytosis improving. Possibly has pneumonia that is responding to abx. Continue supportive care. No progression of lymphoma noted. Mahogany Tamayo Jun 24, 2016 09:47 Jamie Bustillo MD Jun 24, 2016 15:46
--- NOTE | 2016-06-24 15:19 | HHI.FPPN ---
Subjective Remarks TACHY WHEN OFF O2 C/O COUGH C/O DIARRHEA D/W RN Objective Vitals Vital Signs Date Time Temp Pulse Resp B/P Pulse Ox O2 Delivery O2 Flow Rate FiO2 06/24/16 12:00 97.5 108 22 138/75 95 06/24/16 08:24 98 21 06/24/16 08:00 98.1 95 22 111/69 100 06/24/16 04:00 97.5 89 16 116/59 98 06/24/16 00:00 97.9 94 17 116/65 98 06/23/16 20:57 95 Nasal Cannula 2.00 06/23/16 20:00 110 06/23/16 20:00 97.5 115 18 120/65 95 06/23/16 16:00 97.9 104 22 122/69 97 I/O 06/23/16 06/23/16 06/23/16 06/24/16 06/24/16 06/24/16 07:00 15:00 23:00 07:00 15:00 23:00 Intake Total 240 ml 660 ml 980 ml 390 ml Balance 240 ml 660 ml 980 ml 390 ml Intake Oral 240 ml 600 ml 480 ml 200 ml IV Total 60 ml 500 ml 190 ml # Voids 2 7 4 # Bowel Movements 0 2 2 Result Diagram: 06/24/1631 06/24/16530 Objective Remarks GENERAL: SKIN: Warm and dry. HEAD: Atraumatic. Normocephalic. EYES: Pupils equal and round. No scleral icterus. No injection or drainage. ENT: No nasal bleeding or discharge. Mucous membranes pink and moist. NECK: Trachea midline. No JVD. CARDIOVASCULAR: Regular rate and rhythm. RESPIRATORY: B RONCHI, HARSH COUGH GASTROINTESTINAL: Abdomen soft, non-tender, nondistended. Hepatic and splenic margins not palpable. MUSCULOSKELETAL: Extremities without clubbing, cyanosis, or edema. No obvious deformities. NEUROLOGICAL: Awake and alert. No obvious cranial nerve deficits. Motor grossly within normal limits. 4 out of 5 muscle strength in the arms and legs. Normal speech. PSYCHIATRIC: Appropriate mood and affect; insight and judgment normal. Medications and IVs Current Medications Medications (Trade) Dose Ordered Sig/Magda Route Start Time Stop Time Status Last Admin (Zyloprim) 300 mg DAILY PO 06/23/16 09:00 06/24/16 08:37 (Ecotrin Ec) 81 mg DAILY PO 06/23/16 09:00 06/24/16 08:37 (Plavix) 75 mg DAILY PO 06/23/16 09:00 06/24/16 08:37 (NS Flush) 2 ml UNSCH PRN IV FLUSH 06/22/16 17:00 (NS Flush) 2 ml BID IV FLUSH 06/22/16 21:00 06/24/16 08:39 (Tylenol) 650 mg Q4H PRN PO 06/22/16 17:00 06/23/16 09:19 (Dulcolax Supp) 10 mg DAILY PRN RECTAL 06/22/16 17:00 (Colace) 100 mg Q12H PO 06/22/16 18:00 (Milk Of Magnyuan Liq) 30 ml Q12H PRN PO 06/22/16 17:00 (Ambien) 5 mg HS PRN PO 06/22/16 17:00 (Lovenox Inj) 40 mg Q24H SQ 06/22/16 18:00 06/23/16 18:05 Naloxone HCl 0.4 mg 0.4 mg UNSCH PRN IV 06/22/16 17:00 Piperacillin Sod/ Tazobactam Sod 50 ml @ 100 mls/hr Q6H IV 06/22/16 18:00 06/24/16 15:01 (Vancomycin Consult Pharmacy) 0 ml @ 0 mls/hr UNSCH OTHER 06/22/16 17:15 (Lasix Inj) 40 mg DAILY IV PUSH 06/23/16 10:00 06/24/16 08:38 Potassium Chloride 10 meq 10 meq DAILY PO 06/23/16 10:00 06/24/16 08:37 (Vancomycin Inj/ NS 500 ml Inj) 515 ml @ 250 mls/hr Q18H IV 06/25/16 03:00 Miscellaneous Information SPECIFIC LAB TO BE DRAWN:VANCOMYCIN TROUGH DATE TO... ONCE ONCE .XX 06/27/16 08:45 06/27/16 08:46 A/P Assessment and Plan Pulmonary fibrosis Pneumonia DIARRHEA, ABX ASSOC SINUS TACHY DUE TO PF HYPOXIA CHF Lymphoblastic lymphoma Coronary artery disease Hypertension SEVERE ANXIETY PLAN- C DIF PO VANCO Zosyn IV Vancomycin IV Aspirin 81 mg daily Plavix daily STOP Colace 100 b.i.d. Lovenox 40 subcu daily Lasix 40 IV daily Follow up blood cultures Telemetry Physical therapy O2 Pulmonary consult Cardiology consult Dr. Bustillo consult PT HAS BEEN OBS FOR TWO MN, EXPECT 2 MORE D INPT STAY FOR THE ABOVE DX AND PLAN. PNA WOULD PROGRESS W/O INPT CONTINUAL WORKUP AND IV ABX. Michele Woodard MD Jun 24, 2016 15:18
[2016-06-24] MEDS: ENOXAPARIN SODIUM 40 MG/0.4 ML SYRINGE SQ SCH (18:00)
[2016-06-24] MEDS: VANCOMYCIN 500 MG VIAL (FOR ORAL USE ONLY) PO SCH ×2 (18:21→21:45)
[2016-06-24 23:14] LABS: C. DIFF EPI 027 PRESUMPTIVE NEGATIVE (NEGATIVE); C. DIFF TOXIN PCR NEGATIVE (NEGATIVE)
[2016-06-25] VITALS: BP 108/59; PULSE 87; RESP 18; TEMP 97.5; O2SAT 96
[2016-06-25] MEDS: PIPERACIL-TAZO 3.375 GM PREMIX 50 ML IV SCH ×3 (00:47→11:36)
[2016-06-25] MEDS ORDERED: VANCOMYCIN INJ 1,500 MG in SODIUM CHLORID 0.9% 500 ML INJ 500 ML IV SCH (03:00)
[2016-06-25 04:00] VITALS: BP 115/60; PULSE 87; RESP 17; TEMP 97.4; O2SAT 96
[2016-06-25] MEDS: DOCUSATE SODIUM 100 MG CAP PO SCH (05:53)
[2016-06-25 07:39] LABS: AUTOMATED NEUTROPHIL # 9.3 TH/MM3 (1.8-7.7); BASOPHIL # 0.1 TH/MM3 (0-0.2); BASOPHIL % 0.7 % (0.0-2.0); EOSINOPHIL # 0.2 TH/MM3 (0-0.4); EOSINOPHIL % 2.1 % (0.0-4.0); HEMATOCRIT 34.5 % (39.0-51.0); HEMO FLAGS DIFF FINAL; LYMPH % 10.9 % (9.0-44.0); LYMPHOCYTE # 1.3 TH/MM3 (1.0-4.8); MEAN CELL VOLUME 89.8 FL (80.0-100.0); MEAN CORPUSCULAR HGB CONC 34.6 % (32.0-36.0); MONO % 6.4 % (0.0-8.0); NEUT % 79.9 % (16.0-70.0); PLATELET COUNT 409 TH/MM3 (150-450); RED BLOOD COUNT 3.84 MIL/MM3 (4.50-5.90); WHITE BLOOD COUNT 11.6 TH/MM3 (4.0-11.0)
[2016-06-25 08:00] VITALS: BP 122/66; PULSE 90; RESP 18; TEMP 97.9; O2SAT 98
[2016-06-25 08:03] LABS: BICARBONATE 36.4 MEQ/L (21.0-32.0); POTASSIUM 3.1 MEQ/L (3.5-5.1)
[2016-06-25] MEDS: SODIUM CHLORIDE 0.9% FLUSH 10 ML FLUSH IV FLUSH SCH (09:00)
[2016-06-25] MEDS: VANCOMYCIN 500 MG VIAL (FOR ORAL USE ONLY) PO SCH ×2 (10:07→11:40)
[2016-06-25] MEDS: POTASSIUM CHLORIDE 10 MEQ CONTROLLED RELEASE TAB PO SCH (10:08)
[2016-06-25] MEDS: ASPIRIN EC 81 MG TABEC PO SCH (10:08)
[2016-06-25] MEDS: FUROSEMIDE 40 MG/4 ML VIAL IV PUSH SCH (10:08)
[2016-06-25] MEDS: ALLOPURINOL 300 MG TAB PO SCH (10:08)
[2016-06-25] MEDS: CLOPIDOGREL 75 MG TAB PO SCH (10:08)
--- NOTE | 2016-06-25 10:38 | PD.ONC.PN ---
Subjective Subjective Remarks Afebrile overnight. Patient breathing well today. He wants to go home. Objective Data Date Time Temp Pulse Resp B/P Pulse Ox O2 Delivery O2 Flow Rate FiO2 06/25/16 08:00 97.9 90 18 122/66 98 06/25/16 04:00 97.4 87 17 115/60 96 06/25/16 00:00 97.5 87 18 108/59 96 06/24/16 20:20 21 06/24/16 20:00 97.4 100 17 112/61 94 06/24/16 20:00 104 06/24/16 17:29 104 06/24/16 16:00 97.3 96 22 114/71 92 06/24/16 12:00 97.5 108 22 138/75 95 06/25/16 06/25/16 06/25/16 07:00 15:00 23:00 Intake Total 200 ml Balance 200 ml Result Diagram: 06/25/16 0708 06/25/16 0708 Laboratory Results Laboratory Tests Test 06/24/16 06/25/16 19:05 07:08 Stool C. difficile Toxin (PCR) NEGATIVE Stl C. difficile Toxin PRESUMPTIVE Epiderm 027 NEGATIVE White Blood Count 11.6 TH/MM3 Red Blood Count 3.84 MIL/MM3 Hemoglobin 11.9 GM/DL Hematocrit 34.5 % Mean Corpuscular Volume 89.8 FL Mean Corpuscular Hemoglobin 31.0 PG Mean Corpuscular Hemoglobin 34.6 % Concent Red Cell Distribution Width 14.0 % Platelet Count 409 TH/MM3 Mean Platelet Volume 7.0 FL Neutrophils (%) (Auto) 79.9 % Lymphocytes (%) (Auto) 10.9 % Monocytes (%) (Auto) 6.4 % Eosinophils (%) (Auto) 2.1 % Basophils (%) (Auto) 0.7 % Neutrophils # (Auto) 9.3 TH/MM3 Lymphocytes # (Auto) 1.3 TH/MM3 Monocytes # (Auto) 0.7 TH/MM3 Eosinophils # (Auto) 0.2 TH/MM3 Basophils # (Auto) 0.1 TH/MM3 CBC Comment DIFF FINAL Differential Comment Sodium Level 137 MEQ/L Potassium Level 3.1 MEQ/L Chloride Level 94 MEQ/L Carbon Dioxide Level 36.4 MEQ/L Anion Gap 7 MEQ/L Blood Urea Nitrogen 12 MG/DL Creatinine 1.15 MG/DL Estimat Glomerular Filtration 63 ML/MIN Rate Random Glucose 109 MG/DL Calcium Level 8.7 MG/DL Culture Results Microbiology Date/Time Procedure Status Source Growth 06/22/16 17:10 Aerobic Blood Culture - Preliminary Resulted Blood Peripheral NO GROWTH IN 2 DAYS 06/22/16 17:10 Anaerobic Blood Culture - Preliminary Resulted Blood Peripheral NO GROWTH IN 2 DAYS 06/22/16 17:25 Aerobic Blood Culture - Preliminary Resulted Blood Peripheral NO GROWTH IN 2 DAYS 06/22/16 17:25 Anaerobic Blood Culture - Preliminary Resulted Blood Peripheral NO GROWTH IN 2 DAYS 06/24/16 18:18 Legionella Antigen - Final Complete Urine Random Urine PRESUMPTIVE NEGATIVE FOR LEGIONELLA P... 06/24/16 18:18 Streptococcus pneumoniae Antigen (M - Final Complete Urine Random Urine PRESUMPTIVE NEGATIVE FOR STREPTOCOCCU... Administered Medications Medications (Trade) Dose Ordered Sig/Magda Route PRN Reason Start Time Stop Time Status Last Admin Dose Admin Allopurinol (Zyloprim) 300 mg DAILY PO 06/23/16 09:00 06/25/16 10:08 Aspirin (Ecotrin Ec) 81 mg DAILY PO 06/23/16 09:00 06/25/16 10:08 Clopidogrel Bisulfate (Plavix) 75 mg DAILY PO 06/23/16 09:00 06/25/16 10:08 Sodium Chloride (NS Flush) 2 ml BID IV FLUSH 06/22/16 21:00 06/25/16 09:00 Acetaminophen (Tylenol) 650 mg Q4H PRN PO TEMP > 100.4 06/22/16 17:00 06/23/16 09:19 Enoxaparin Sodium 40 mg 40 mg Q24H SQ 06/22/16 18:00 06/23/16 18:05 Piperacillin Sod/ Tazobactam Sod (Zosyn 3.375 Gm Premix) 50 ml @ 100 mls/hr Q6H IV 06/22/16 18:00 06/25/16 05:53 Furosemide (Lasix Inj) 40 mg DAILY IV PUSH 06/23/16 10:00 06/25/16 10:08 Potassium Chloride 10 meq 10 meq DAILY PO 06/23/16 10:00 06/25/16 10:08 Vancomycin HCl/ Sodium Chloride (Vancomycin Inj/ NS 500 ml Inj) 515 ml @ 250 mls/hr Q18H IV 06/25/16 03:00 06/25/16 04:23 Vancomycin HCl (VANCOMYCIN for oral use only) 250 mg QID PO 06/24/16 18:00 06/25/16 10:07 Objective Remarks GENERAL: Middle aged male, sitting up in bed in [facility]. SKIN: Warm and dry. HEAD: Normocephalic. EYES: No injection or drainage. NECK: Supple, trachea midline. CARDIOVASCULAR: Regular rate and rhythm RESPIRATORY: improved lung sounds in all lung armstrong. faint crackles heard in right lung armstrong GASTROINTESTINAL: Abdomen soft, non-tender, nondistended. EXTREMITIES: No cyanosis or edema. NEUROLOGICAL: awake and alert, normal speech. Assessment/Plan Problem List: (1) History of lymphoma Status: Chronic Plan: h/o IgG variant lymphoplasmacytic lymphoma. --has not received treatment. is currently under observation. --has no palpable adenopathy or splenomegaly. --CT angiogram did not show any adenopathy in the thorax. --repeat IgG level has trended down to 2960. --free kappa light chain also trended down. light chain ratio is stable. -- no evidence of progression of disease. (2) Shortness of breath at rest Status: Acute Plan: --Shortness of breath with back pain and tachycardia. --CT angiogram--no PE++ interstitial fibrotic changes with superimposed interstitial edema and bilateral effusion noted. +small pericardial effusion noted. --echocardiogram --> NO significant pericardial effusion. --On presentation he had leukocytosis which is predominately neutrophils. He was started on antibiotic and his symptoms improved. white blood cell count trending down. 25-->17-->12-->11 may have underlying infection/?pneumonia or inflammatory process that has improved. --do not think his symptom is due to his underlying lymphoplasmacytic lymphoma which has been stable. Assessment 66y/o male with h/o lymphoma admitted with shortness of breath and chest pain. 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 Hypertension Gout. Schatzki's ring. h/o Coronary disease status post stent placement. Pulmonary fibrosis. Congestive heart failure on diuretic. Plan 1. once discharged follow up in clinic with Dr. Bustillo in 2-3 weeks 2. continue supportive care/antibiotics per primary Attending Statement The exam, history, and the medical decision-making described in the above note were completed with the assistance of the mid-level provider. I reviewed and agree with the findings presented. I attest that I had a [id number] encounter with the patient on the same day, and personally performed and documented my assessment and findings in the medical record.(Late Entry). Feel better. WBC trending down. Will be d/c today. Mahoagny Tamayo Jun 25, 2016 10:38 Jamie Bustillo MD Jun 25, 2016 18:55
[2016-06-25] MEDS ORDERED: CEFT500T3 PO (11:21)
[2016-06-25] MEDS ORDERED: DOXY100C PO (11:21)
--- NOTE | 2016-06-25 11:23 | HHI.DCPOC ---
Discharge Care Plan Diagnosis: (1) Probable congestive heart failure (2) Schatzki's ring (3) Hypotension (4) Acute respiratory insufficiency (5) Community acquired pneumonia (6) Severe sepsis (7) Hypoxia (8) Chest pain (9) HLD (hyperlipidemia) (10) Lung nodule (11) Atypical chest pain (12) Chronic lung disease (13) Pulmonary fibrosis (14) History of lymphoma Goals to Promote Your Health * To prevent worsening of your condition and complications * To maintain your health at the optimal level Directions to Meet Your Goals Take your medications as prescribed Follow your dietary instruction Follow activity as directed Keep your appointments as scheduled Take your immunizations and boosters as scheduled If your symptoms worsen call your PCP, if no PCP go to Urgent Care Center or Emergency Room Smoking is Dangerous to Your Health. Avoid second hand smoke Call the 24-hour hour crisis hotline for domestic abuse at Michele Woodard MD Jun 25, 2016 11:23
--- NOTE | 2016-06-25 11:24 | HHI.DS ---
Discharge Summary Admission Date Jun 24, 2016 at 15:21 Admitting Diagnosis pleuritic back pain,tachycardia,dyspnea (1) respiratory insufficienc (2) Pleuritic pain (3) Tachycardia (4) History of lymphoma (5) Shortness of breath at rest (6) Acute respiratory insufficiency (7) Pulmonary fibrosis (8) Schatzki's ring (9) Chest pain (10) Hypotension (11) HLD (hyperlipidemia) (12) Community acquired pneumonia (13) Lung nodule (14) Atypical chest pain (15) Chronic lung disease (16) Probable congestive heart failure CBC/BMP: 06/25/16 0708 06/25/16 0708 Significant Findings Laboratory Tests Test 06/23/16 06/24/16 06/24/16 06/25/16 07:21 05:31 09:10 07:08 White Blood Count 17.1 TH/MM3 12.3 TH/MM3 11.6 TH/MM3 (4.0-11.0) (4.0-11.0) (4.0-11.0) Red Blood Count 3.95 MIL/MM3 3.69 MIL/MM3 3.84 MIL/MM3 (4.50-5.90) (4.50-5.90) (4.50-5.90) Hemoglobin 12.3 GM/DL 11.7 GM/DL 11.9 GM/DL (13.0-17.0) (13.0-17.0) (13.0-17.0) Hematocrit 35.6 % 33.2 % 34.5 % (39.0-51.0) (39.0-51.0) (39.0-51.0) Neutrophils (%) (Auto) 84.4 % 77.5 % 79.9 % (16.0-70.0) (16.0-70.0) (16.0-70.0) Lymphocytes (%) (Auto) 7.8 % (9.0-44.0) Neutrophils # (Auto) 14.4 TH/MM3 9.6 TH/MM3 9.3 TH/MM3 (1.8-7.7) (1.8-7.7) (1.8-7.7) Sodium Level 135 MEQ/L (136-145) Chloride Level 94 MEQ/L 96 MEQ/L 94 MEQ/L (98-107) (98-107) (98-107) Carbon Dioxide Level 34.9 MEQ/L 34.6 MEQ/L 36.4 MEQ/L (21.0-32.0) (21.0-32.0) (21.0-32.0) Estimat Glomerular Filtration 72 ML/MIN (>89) 67 ML/MIN (>89) 63 ML/MIN (>89) Rate Random Glucose 121 MG/DL 109 MG/DL (74-106) (74-106) Troponin I LESS THAN 0.02 NG/ML (0.02-0.05) Vancomycin Level Trough 18.9 MCG/ML (5.0-10.0) Potassium Level 3.1 MEQ/L (3.5-5.1) PE at Discharge GENERAL: SKIN: Warm and dry. HEAD: Atraumatic. Normocephalic. EYES: Pupils equal and round. No scleral icterus. No injection or drainage. ENT: No nasal bleeding or discharge. Mucous membranes pink and moist. NECK: Trachea midline. No JVD. CARDIOVASCULAR: Regular rate and rhythm. RESPIRATORY: No accessory muscle use. Clear to auscultation. Breath sounds equal bilaterally. GASTROINTESTINAL: Abdomen soft, non-tender, nondistended. Hepatic and splenic margins not palpable. MUSCULOSKELETAL: Extremities without clubbing, cyanosis, or edema. No obvious deformities. NEUROLOGICAL: Awake and alert. No obvious cranial nerve deficits. Motor grossly within normal limits. Five out of 5 muscle strength in the arms and legs. Normal speech. PSYCHIATRIC: Appropriate mood and affect; insight and judgment normal. Hospital Course Pulmonary fibrosis Pneumonia DIARRHEA, ABX ASS[facility] SINUS TACHY DUE TO PF HYPOXIA CHF Lymphoblastic lymphoma Coronary artery disease Hypertension SEVERE ANXIETY PLAN- C DIF PO VANCO Zosyn IV Vancomycin IV Aspirin 81 mg daily Plavix daily STOP Colace 100 b.i.d. Lovenox 40 subcu daily Lasix 40 IV daily Follow up blood cultures Telemetry Physical therapy O2 Pulmonary consult Cardiology consult Dr. Bustillo consult pt asymp, REQS TO DC ASTRID NOW. Discharge Disposition: Discharge Home Discharge Instructions DIET: Follow Instructions for: As Tolerated, No Restrictions Activities you can perform: Regular-No Restrictions Follow up Referrals: Cardiology - 1 Week with Abraham Nava MD PCP Follow-up - 2-3 Days Pulmonology - 1 Week with Silvestre Echeevrria MD New Medications: Cefuroxime (Ceftin) 500 Mg Tab 500 MG PO BID Infection Days 10 Ref 0 TAB Doxycycline Hyclate (Doxycycline Hyclate) 100 Mg Cap 100 MG PO BID Infection #20 Ref 0 CAP Continued Medications: Allopurinol (Allopurinol) 300 Mg Tab 300 MG PO DAILY Gout #30 Ref [address] (Aspirin 81) 81 Mg Tabdr 81 MG PO DAILY Ref 0 TAB Atorvastatin (Lipitor) 40 Mg Tab 40 MG PO HS Cholesterol Management #30 Ref 0 TAB Clopidogrel (Plavix) 75 Mg Tab 75 MG PO DAILY Blood Clot Prevention #30 Ref 0 TAB Casanova-3 Fatty Acids (Fish Oil 1200 mg) 1 Cap Cap 2400 MG PO DAILY Pantoprazole (Pantoprazole) 40 Mg Tab 40 MG PO 2XWEEK Reflux #30 Ref 0 TAB Discontinued Medications: Atorvastatin (Atorvastatin) 20 Mg Tab 20 MG PO HS Cholesterol Management #30 Ref 0 TAB Michele Woodard MD Jun 25, 2016 11:24
[2016-06-25 12:00] VITALS: BP 128/74; PULSE 91; RESP 18; TEMP 98; O2SAT 94
[2016-06-25] MEDS ORDERED: POTASSIUM CHLORIDE 20 MEQ CONTROLLED RELEASE TAB PO ONE (12:00)
[2016-06-27] MEDS ORDERED: PHARMACY ORDERED LAB ONE (08:45)
== END 2016-06-25 12:25 | disposition home or self-care (01) | DRG 190 ==
LOC: NEPA 09:56 → NEDA 16:04 → INTOOBSV 16:04 → N04B 18:51 → OBSVTOIN 06-24 15:21
PROVIDERS: ADMIT Family Medicine; ATTEND Family Medicine
DX: J44.0 Chronic obstructive pulmonary disease with (acute) lower respiratory infection (principal); J18.9 Pneumonia, unspecified organism; C83.00 Small cell B-cell lymphoma, unspecified site; I31.3 Pericardial effusion (noninflammatory); K52.1 Toxic gastroenteritis and colitis; I50.9 Heart failure, unspecified; I11.0 Hypertensive heart disease with heart failure; I95.9 Hypotension, unspecified; K22.2 Esophageal obstruction; J84.10 Pulmonary fibrosis, unspecified; I25.10 Atherosclerotic heart disease of native coronary artery without angina pectoris; G47.30 Sleep apnea, unspecified; R09.02 Hypoxemia; K21.9 Gastro-esophageal reflux disease without esophagitis; M10.9 Gout, unspecified; R91.1 Solitary pulmonary nodule; R00.0 Tachycardia, unspecified; R06.89 Other abnormalities of breathing; E78.5 Hyperlipidemia, unspecified; I25.2 Old myocardial infarction; T36.95XA Adverse effect of unspecified systemic antibiotic, initial encounter; F41.9 Anxiety disorder, unspecified; Y92.239 Unspecified place in hospital as the place of occurrence of the external cause; Z87.891 Personal history of nicotine dependence; Z95.5 Presence of coronary angioplasty implant and graft; Z99.81 Dependence on supplemental oxygen
CPT/HCPCS: 71010; 71275; 80048; 80202; 83605; 84484; 85025; 85610; 85730; 87040; 87449; 87493; 93005; 93306; 96374; 99212; 99215; G0463; G8987-GP; G8988-GP; J1650; J1940; J2543; J3370; J7040; J7050; Q9967